=== PATIENT | female | born 1990 | race Caucasian/White ===

== ENCOUNTER 2018-06-11 23:33 | Inpatient (IN) | payer OTHER ==
[~2018-06-11] VITALS: Ht 144.8 cm; Wt 73.7 kg
[2018-06-11 23:40] VITALS: BP 126/69
[2018-06-11] MEDS ORDERED: LIDOCAINE/EPI 2% 1:200,00 (XYLOCAINE) 10 ML VIAL ONE (23:44)
[2018-06-11] MEDS ORDERED: D5 LR IV SOLUTION 1,000 ML IV ONE (23:44)
[2018-06-11] MEDS ORDERED: OXYTOCIN/NORMAL SALINE 500 ML IV ONE (23:44)
[2018-06-11] MEDS ORDERED: D5 LR IV SOLUTION 1,000 ML IV SCH (23:55)
[2018-06-12] VITALS (11 sets, daily range): BP systolic 89–124; BP diastolic 51–71
[2018-06-12] LABS: BASOPHILS % (AUTO) 0 % (0-10); EOSINOPHILS # (AUTO) 0.4 10^3/uL (0.0-0.3); EOSINOPHILS % (AUTO) 3 % (0-10); HEMATOCRIT 39 % (35-52); HEMOGLOBIN 13.1 G/DL (11.5-16.0); LYMPHOCYTES # (AUTO) 1.7 X 10^3 (1.0-4.0); LYMPHOCYTES % (AUTO) 12 % (12-44); MEAN CORPUSCULAR HEMOGLOBIN 30 PG (25-34); MEAN CORPUSCULAR HGB CONC 34 G/DL (32-36); MEAN CORPUSCULAR VOLUME 89 FL (80-99); MEAN PLATELET VOLUME 11.4 FL (7.4-10.4); MONOCYTES # (AUTO) 1.2 X 10^3 (0.0-1.0); MONOCYTES % (AUTO) 8 % (0-12); NEUTROPHILS # (AUTO) 10.8 X 10^3 (1.8-7.8); NEUTROPHILS % (AUTO) 77 % (42-75); PLATELET COUNT 216 10^3/uL (130-400); RED BLOOD COUNT 4.36 10^6/uL (4.35-5.85); RED CELL DISTRIBUTION WIDTH 14.4 % (10.0-14.5)
[2018-06-12] MEDS ORDERED: MINERAL OIL CONCENTRATE 99.9% 15 ML UDC TOP PRN
--- NOTE | 2018-06-12 00:28 | History & Physical-OB ---
OB - Chief Complaint & HPI Date/Time Date of Admission: Date of Admission: Date seen by a Provider: Jun 12, 2018 Time Seen by a Provider: 00:23 Chief Complaint/History OB-Reason for Admission/Chief: Onset of Labor Hx : 2 Hx Para: 1 Expected Date of Delivery: Jun 10, 2018 Gestational Age in Weeks: 40 Gestational Age in Days: 2 Other O+, Ab neg Rub Non Imm HIV/RPR/HepB NR GC/chyl Neg GTT normal GBS neg Allergies and Home Medications Allergies Coded Allergies: No Known Drug Allergies (Unverified , 06/11/18) Home Medications No Active Prescriptions or Reported Meds Patient Home Medication List Home Medication List Reviewed: Yes OB - History Hx of Present Care: Yes Ultrasounds: Normal mid trimester US Obstetrical Complications: None Medical Complications: None Information Induced Hypertension: No Maternal Gestational Diabetes: No Hemorrhage: No Obstetrical History Hx : 2 Hx Para: 1 Hx # Term Pregnancies: 1 Number of Living Children: 1 Patient Past Medical History None Social History/Family History HIV/AIDS: No Recent Infectious Disease Expo: No Sexually Transmitted Disease: No Alcohol Use: Denies Use Recreational Drug Use: No Smoking Cessation: Never smoker 2nd Hand Smoke Exposure: No Immunizations Tetanus Booster (TDap): Less than 5yrs Rubella: not immune RPR/VDRL: Negative GBS Status: Negative HBsAG: Negative OB - Admission Exam Physical Exam HEENT: NCAT Heart: Rhythm Normal Lungs: Clear Abdomen: Gravid Extremities: Normal Cervical Dilatation: 9cm Effacement: 100% Station: +1 Membranes: Intact Amniotic Fluid: Clear Accelerations: Accelerations Present Decelerations: No Decelerations Contractions on Admission: < 5 Minutes Apart Labs Laboratory Tests Test 06/11/18 23:48 Range/Units White Blood Count 14.0 H 4.3-11.0 10^3/uL Red Blood Count 4.36 4.35-5.85 10^6/uL Hemoglobin 13.1 11.5-16.0 G/DL Hematocrit 39 35-52 % Mean Corpuscular Volume 89 80-99 FL Mean Corpuscular Hemoglobin 30 25-34 PG Mean Corpuscular Hemoglobin Concent 34 32-36 G/DL Red Cell Distribution Width 14.4 10.0-14.5 % Platelet Count 216 130-400 10^3/uL Mean Platelet Volume 11.4 H 7.4-10.4 FL Neutrophils (%) (Auto) 77 H 42-75 % Lymphocytes (%) (Auto) 12 12-44 % Monocytes (%) (Auto) 8 0-12 % Eosinophils (%) (Auto) 3 0-10 % Basophils (%) (Auto) 0 0-10 % Neutrophils # (Auto) 10.8 H 1.8-7.8 X 10^3 Lymphocytes # (Auto) 1.7 1.0-4.0 X 10^3 Monocytes # (Auto) 1.2 H 0.0-1.0 X 10^3 Eosinophils # (Auto) 0.4 H 0.0-0.3 10^3/uL Basophils # (Auto) 0.0 0.0-0.1 10^3/uL OB - Assessment/Plan/Diagnosis Assessment Assessment: active labor Admission Dx Term Admission Status: Inpatient Order (span 2 midnights) Reason for Inpatient Admission: Active labor Plan Plan: Expectant Management Induction Method: AROM Other Plan 27 yo @ 40.2 wga here for active labor Plan - Expectant management - GBS neg - Does not desire epidural Copy Copies To 1: MYNOR CONTRERAS MD, HOLLY R MD Jun 12, 2018 00:28
[2018-06-12] MEDS ORDERED: OXYTOCIN/NORMAL SALINE 500 ML IV SCH (01:42)
--- NOTE | 2018-06-12 01:42 | OB Labor & Delivery Record ---
Vag Delivery Note Vag Delivery Note Date of Delivery: 06/12/18 Preoperative Diagnosis: Ingrid Rosa is a (27 /Para 2 / 1, Gestational Age (wks)40.2 wga here for active onset of labor Postoperative Diagnosis: Same Surgeon: MYNOR CONTRERAS Supervisor Long Goods: none Anesthesia: None Delivery Type: @ 0118 Findings: Term [place], no complications Viable female , apgars 8/9, weight 3625, 8#0 Lacerations: None Intact placenta with 3 vessel cord. No nuchal cord, body cord or shoulder dystocia Estimated Blood Loss: 200 ml Complications: None Condition: Stable Description of Procedure: The patient is a 27 yo G2 now P2 who presented in active labor. She was admitted and informed consent was obtained. Her labor course was unremarkable. She progressed to complete dilatation and began to push. She was then set up for delivery. The infant's head was delivered atraumatically in the JADA position. The shoulders and remainder of the infant's body were then delivered without difficulty. Upon delivery, infant was placed on maternal abdomen and attended to by pediatric staff. The cord was doubly clamped and cut by FOB. An intact placenta with 3-vessel cord delivered via Jenny and there was found to be minimal bleeding.~ Vigorous fundal massage was performed and the fundus was found to be firm. IV oxytocin was given. Examination of the vagina and perineum revealed no lacerations that required repair. Following the repair, sponge, instrument and needle counts were correct. Mom and baby were both in stable condition in the labor suite. Vitals - Labs Labs Laboratory Tests 06/11/18 23:48: White Blood Count 14.0H, Red Blood Count 4.36, Hemoglobin 13.1, Hematocrit 39, Mean Corpuscular Volume 89, Mean Corpuscular Hemoglobin 30, Mean Corpuscular Hemoglobin Concent 34, Red Cell Distribution Width 14.4, Platelet Count 216, Mean Platelet Volume 11.4H, Neutrophils (%) (Auto) 77H, Lymphocytes (%) (Auto) 12, Monocytes (%) (Auto) 8, Eosinophils (%) (Auto) 3, Basophils (%) (Auto) 0, Neutrophils # (Auto) 10.8H, Lymphocytes # (Auto) 1.7, Monocytes # (Auto) 1.2H, Eosinophils # (Auto) 0.4H, Basophils # (Auto) 0.0 MYNOR CONTRERAS MD Jun 12, 2018 01:41
[2018-06-12] MEDS ORDERED: WITCH HAZEL(TUCKS) 40 EA JAR TOP PRN (01:45)
[2018-06-12] MEDS ORDERED: MEASLES,MUMPS,RUBELLA 1 EA INJ SQ ONE (01:45)
[2018-06-12] MEDS ORDERED: BENZOCAINE/MENTHOL (DERMOPLAST) 56 ML CAN TP PRN (01:45)
[2018-06-12] MEDS: IBUPROFEN 600 MG (MOTRIN) TAB PO SCH ×4 (02:56→23:16)
[2018-06-12] MEDS ORDERED: CATHETER FLUSH 10 ML SYR IV SCH ×2 (06:00)
[2018-06-12] MEDS ORDERED: FLU QUADRIvalent (5+ YOA) 2018-2019 (AFLURIA) 0.5 ML IM ONE (07:30)
[2018-06-13 02:39] VITALS: BP 98/59
[2018-06-13] MEDS: IBUPROFEN 600 MG (MOTRIN) TAB PO SCH ×2 (04:57→11:16)
[2018-06-13 05:40] LABS: BASOPHILS % (AUTO) 0 % (0-10); EOSINOPHILS # (AUTO) 0.7 10^3/uL (0.0-0.3); EOSINOPHILS % (AUTO) 6 % (0-10); HEMATOCRIT 31 % (35-52); HEMOGLOBIN 10.2 G/DL (11.5-16.0); LYMPHOCYTES # (AUTO) 2.5 X 10^3 (1.0-4.0); LYMPHOCYTES % (AUTO) 21 % (12-44); MEAN CORPUSCULAR HEMOGLOBIN 30 PG (25-34); MEAN CORPUSCULAR HGB CONC 33 G/DL (32-36); MEAN CORPUSCULAR VOLUME 90 FL (80-99); MEAN PLATELET VOLUME 11.4 FL (7.4-10.4); MONOCYTES # (AUTO) 0.9 X 10^3 (0.0-1.0); MONOCYTES % (AUTO) 7 % (0-12); NEUTROPHILS % (AUTO) 66 % (42-75); PLATELET COUNT 195 10^3/uL (130-400); RED BLOOD COUNT 3.44 10^6/uL (4.35-5.85); RED CELL DISTRIBUTION WIDTH 14.3 % (10.0-14.5); WHITE BLOOD COUNT 12.1 10^3/uL (4.3-11.0)
[2018-06-13 09:52] VITALS: BP 97/68
[2018-06-13] MEDS ORDERED: IBUP-844 PO (10:19)
--- NOTE | 2018-06-13 10:23 | Discharge Summary ---
Diagnosis/Chief Complaint Date of Admission Jun 11, 2018 at 23:34 Date of Discharge Jun 13, 2018 Admission Diagnosis Admission Diagnosis 27 yo @ 40.2 wga here for active labor Discharge Diagnosis 27 yo @ 40.2 wga admitted for active labor s/p of Term [place], no complications Viable female infant, apgars 8/9, weight 3625, 8#0 Lacerations: None Intact placenta with 3 vessel cord. No nuchal cord, body cord or shoulder dystocia Discharge Summary-OBS Procedures None. Discharge Physical Examination Allergies: Coded Allergies: No Known Drug Allergies (Unverified , 06/11/18) Vitals & I&Os Vital Sign - Last 12Hours Date Time Temp Pulse Resp B/P (MAP) Pulse Ox O2 Delivery O2 Flow Rate FiO2 06/13/18 09:52 97.7 68 18 97/68 (78) 98 Room Air General Appearance: Alert, Oriented X3, Cooperative Psych/Mental Status: Mood NL Hospital Course Routine pp care Labs Laboratory Tests 06/13/18 05:30: White Blood Count 12.1H, Red Blood Count 3.44L, Hemoglobin 10.2#L, Hematocrit 31L, Mean Corpuscular Volume 90, Mean Corpuscular Hemoglobin 30, Mean Corpuscular Hemoglobin Concent 33, Red Cell Distribution Width 14.3, Platelet Count 195, Mean Platelet Volume 11.4H, Neutrophils (%) (Auto) 66, Lymphocytes (% ) (Auto) 21, Monocytes (%) (Auto) 7, Eosinophils (%) (Auto) 6, Basophils (%) ( Auto) 0, Neutrophils # (Auto) 8.0H, Lymphocytes # (Auto) 2.5, Monocytes # (Auto ) 0.9, Eosinophils # (Auto) 0.7H, Basophils # (Auto) 0.0 Discharge Instructions to patient/family Please see electronic discharge instructions given to patient. Discharge Inst-Women's Serv Depart Medications New, Converted or Re-Newed RX: Other (May take over the counter) New Medications: Ibuprofen (Ibu) 600 Mg Tablet 600 MG PO Q6H, #90 TAB 0 Refills Follow Up/Instructions Goal/Follow Up: Follow up with Dr. Jorgensen in 6 weeks. Activity Activity: Activity as Tolerated Driving Instructions: You May Drive Nothing Inside Vagina: No Douching, No [place], No Tampons Diet Discharge Diet: No Restrictions Symptoms to Report to : Bleeding Excessive, Pain Increased, Fever Over 101 Degrees F, Vaginal Bleeding Increase, Vaginal Discharge Foul, Questions/Concerns , Shortness of Breath Discharge Medications Reviewed and agree with Discharge Medication list on patient's Discharge Instruction sheet Clinical Quality Measures DVT/VTE Risk/Contraindication: Risk Factor Score Per Nursin RFS Level Per Nursing on Admit: 2=Moderate Copy Copies To 1: MYNOR JORGENSEN MD, LINDA K DO Jun 13, 2018 10:23
[2018-06-13] MEDS ORDERED: MEASLES,MUMPS,RUBELLA 1 EA INJ ONE (11:03)
== END 2018-06-13 12:46 | disposition home or self-care (01) | DRG 807 ==
LOC: WSo 23:33 → LDRP 23:34 → EDBD 23:34 → LDRP 23:37
PROVIDERS: ADMIT Family Medicine; ATTEND Family Medicine
PROC: 10E0XZZ Delivery of Products of Conception, External Approach (ICD-10-PCS; principal; 2018-06-12)
DX: O80 Encounter for full-term uncomplicated delivery (principal); Z3A.40 40 weeks gestation of pregnancy; Z37.0 Single live birth
CPT/HCPCS: 36415; 85025; 86850; 86900; 86901; 90707; 99212

== ENCOUNTER 2019-08-30 07:00 | Inpatient (IN) | payer MEDICAID, OTHER ==
[~2019-08-30] VITALS: Ht 148 cm; Wt 75.2 kg
[2019-08-30] VITALS (30 sets, daily range): BP systolic 100–137; BP diastolic 52–85
[~2019-08-30 07:00] MED LIST: IBUP-1773 PO; IBUP-844 PO
[2019-08-30] MEDS ORDERED: D5 LR IV SOLUTION 1,000 ML IV ONE (07:19)
[2019-08-30] MEDS ORDERED: OXYTOCIN PRE-MIX DRIP 500 ML IV SCH ×2 (07:21→15:45)
--- NOTE | 2019-08-30 07:25 | NUR ---
JONATHON LAST presented to unit via AMBULATORY, accompanied by SIGNIFICANT OTHER, FOR SCHEDULED INDUCTION. JONATHON LAST weighed, gowned, voided, and to bed. EFHM and TOCO applied, VS taken. JONATHON LAST oriented to bed controls, call light, TV, heat, and A/C controls.
[2019-08-30] MEDS ORDERED: MINERAL OIL CONCENTRATE 99.9% 15 ML UDC TOP PRN (07:30)
[2019-08-30 08:16] LABS: BASOPHILS % (AUTO) 0 % (0-10); EOSINOPHILS # (AUTO) 0.1 10^3/uL (0.0-0.3); EOSINOPHILS % (AUTO) 1 % (0-10); HEMATOCRIT 38 % (35-52); HEMOGLOBIN 12.6 G/DL (11.5-16.0); LYMPHOCYTES # (AUTO) 1.7 X 10^3 (1.0-4.0); LYMPHOCYTES % (AUTO) 22 % (12-44); MEAN CORPUSCULAR HEMOGLOBIN 28 PG (25-34); MEAN CORPUSCULAR HGB CONC 33 G/DL (32-36); MEAN CORPUSCULAR VOLUME 87 FL (80-99); MEAN PLATELET VOLUME 11.6 FL (7.4-10.4); MONOCYTES # (AUTO) 0.6 X 10^3 (0.0-1.0); MONOCYTES % (AUTO) 8 % (0-12); NEUTROPHILS # (AUTO) 5.2 X 10^3 (1.8-7.8); NEUTROPHILS % (AUTO) 68 % (42-75); PLATELET COUNT 258 10^3/uL (130-400); RED CELL DISTRIBUTION WIDTH 14.6 % (10.0-14.5); WHITE BLOOD COUNT 7.6 10^3/uL (4.3-11.0)
--- NOTE | 2019-08-30 08:30 | NUR ---
DR CONTRERAS MADE AWARE OF PT REPORT INCLUDING SVE /2, PITOCIN RATE, FHT, UC PATTERN, DOES NOT WANT EPIDURAL. NO NEW ORDERS AT THIS TIME.
[2019-08-30] MEDS: D5 LR IV SOLUTION 1,000 ML IV SCH ×2 (08:41→19:21)
--- NOTE | 2019-08-30 09:45 | NUR ---
DR NESS AT BEDSIDE FOR AROM. SVE BY DR NESS 7CM. DR NESS TO UPDATE DR CONTRERAS ON PT SVE.
--- NOTE | 2019-08-30 10:35 | NUR ---
DR CONTRERAS ON L&D FLOOR UNTIL PT DELIVERS
--- NOTE | 2019-08-30 11:27 | History & Physical-OB ---
OB - Chief Complaint & HPI Date/Time Date of Admission: Date of Admission: Aug 30, 2019 at 07:15 Date seen by a Provider: Aug 30, 2019 Time Seen by a Provider: 11:00 Chief Complaint/History OB-Reason for Admission/Chief: Induction of Labor Hx : 3 Hx Para: 2 Expected Date of Delivery: Aug 23, 2019 Gestational Age in Weeks: 41 Gestational Age in Days: 0 Indication for induction: post dates History of Labs O+, Ab neg Rub Imm HepB/HIV/RPR NR Normal 1 hr GTT GBS Neg Allergies and Home Medications Allergies Coded Allergies: No Known Drug Allergies (Unverified , 06/11/18) Home Medications Ibuprofen 600 Mg Tablet, 600 MG PO Q6H Prescribed by: KUNAL ESTEBAN on 02/02/16 1314 Ibuprofen 600 Mg Tablet, 600 MG PO Q6H Prescribed by: KUNAL ESTEBAN on 06/13/18 1019 Patient Home Medication List Home Medication List Reviewed: Yes OB - History Hx of Present Care: Yes Ultrasounds: Normal mid trimester US Obstetrical Complications: None Medical Complications: None Information Induced Hypertension: No Maternal Gestational Diabetes: No Hemorrhage: No Obstetrical History Hx : 3 Hx Para: 2 Hx # Term Pregnancies: 2 Hx # Pregnancies: 0 Number of Living Children: 2 Delivery History Hx Dystocia: No Hx Forceps Assisted Delivery: No Hx Vacuum Extraction Assisted: No Hx Placenta Abnormality: No Hx Large For Gestational Age I: No Hx Small for Gestational Age I: No Hx Section: No Hx Vaginal Delivery Post C-Sec: No Hx Blood Disorders: No Adverse Rxn to Tranfusion: No Patient Past Medical History None Social History/Family History HIV/AIDS: No Recent Infectious Disease Expo: No Sexually Transmitted Disease: No Alcohol Use: Denies Use Recreational Drug Use: No 2nd Hand Smoke Exposure: No Immunizations Hepatitis A: Yes Hepatitis B: Yes Tetanus Booster (TDap): Less than 5yrs (06/26/19) Date of Influenza Vaccine: Apr 03, 2019 Rubella: immune RPR/VDRL: Negative GBS Status: Negative HBsAG: Negative OB - Admission Exam Physical Exam Vitals: Vital Signs 08/30/19 08/30/19 08/30/19 08:38 10:00 10:45 Temp 36.6 Pulse 77 Resp 16 B/P (MAP) 108/63 (78) Pulse Ox 98 O2 Delivery Room Air HEENT: NCAT Heart: Rhythm Normal Lungs: Clear Abdomen: Gravid Cervical Dilatation: 7cm Effacement: 100% Station: 0 Membranes: Ruptured Amniotic Fluid: Clear Heart Rate: 130's Decelerations: No Decelerations Contractions on Admission: < 5 Minutes Apart Intensity: Moderate [place]ello Scoring Tool (Modified) Dilation (cm): 3-4cm (2) Effacement (%): 80-100% (3) Descent/Station: -1,0 (2) Cervix Consistency: Medium(1) Cervix Position: Middle/Mid-Position (1) Add 1 point for: Each previous vaginal delivery (1) Subtract 1 point for: Postdate (-1) [place] Score: 10 Labs Laboratory Tests Test 08/30/19 08:00 Range/Units White Blood Count 7.6 4.3-11.0 10^3/uL Red Blood Count 4.44 4.35-5.85 10^6/uL Hemoglobin 12.6 11.5-16.0 G/DL Hematocrit 38 35-52 % Mean Corpuscular Volume 87 80-99 FL Mean Corpuscular Hemoglobin 28 25-34 PG Mean Corpuscular Hemoglobin Concent 33 32-36 G/DL Red Cell Distribution Width 14.6 H 10.0-14.5 % Platelet Count 258 130-400 10^3/uL Mean Platelet Volume 11.6 H 7.4-10.4 FL Neutrophils (%) (Auto) 68 42-75 % Lymphocytes (%) (Auto) 22 12-44 % Monocytes (%) (Auto) 8 0-12 % Eosinophils (%) (Auto) 1 0-10 % Basophils (%) (Auto) 0 0-10 % Neutrophils # (Auto) 5.2 1.8-7.8 X 10^3 Lymphocytes # (Auto) 1.7 1.0-4.0 X 10^3 Monocytes # (Auto) 0.6 0.0-1.0 X 10^3 Eosinophils # (Auto) 0.1 0.0-0.3 10^3/uL Basophils # (Auto) 0.0 0.0-0.1 10^3/uL OB - Assessment/Plan/Diagnosis Assessment Assessment: induction of labor Admission Dx Post dates 41 week gestation Third trimester Admission Status: Inpatient Order (span 2 midnights) Reason for Inpatient Admission: Labor Plan Plan: Induction Induction Method: per Pitocin Protocol Other Plan 28 yo @ 41 wga here for IOL Plan - Pitocin protocol - AROM - GBS neg Copy Copies To 1: MYNOR CONTRERAS MD, HOLLY R MD Aug 30, 2019 11:27
[2019-08-30] MEDS ORDERED: MISOPROSTOL 200 MCG (CYTOTEC) TABLET ONE (13:23)
[2019-08-30] MEDS ORDERED: MISOPROSTOL 200 MCG (CYTOTEC) TABLET PR ONE (13:30)
[2019-08-30] MEDS ORDERED: CATHETER FLUSH 10 ML SYR IV SCH ×2 (14:00→22:00)
[2019-08-30] MEDS ORDERED: WITCH HAZEL(TUCKS) 40 EA JAR ONE (15:39)
[2019-08-30] MEDS ORDERED: BENZOCAINE/MENTHOL (DERMOPLAST) 60 ML CAN TP ONE (15:39)
[2019-08-30] MEDS ORDERED: WITCH HAZEL(TUCKS) 40 EA JAR TOP PRN ×2 (15:45→16:15)
[2019-08-30] MEDS ORDERED: TETANUS,DIPTH,PERTUSS P/F (BOOSTRIX) 0.5 ML VIAL IM ONE (15:45)
[2019-08-30] MEDS ORDERED: BENZOCAINE/MENTHOL (DERMOPLAST) 60 ML CAN TP PRN ×2 (15:45→16:15)
[2019-08-30] MEDS ORDERED: MEASLES,MUMPS,RUBELLA 1 EA INJ SQ ONE (15:45)
[2019-08-30] MEDS ORDERED: IBUPROFEN 600 MG (MOTRIN) TAB PO ONE (15:53)
--- NOTE | 2019-08-30 17:10 | NUR ---
report received from MARCELA Jimenez.
--- NOTE | 2019-08-30 17:25 | OB Labor & Delivery Record ---
Vag Delivery Note Vag Delivery Note Date of Delivery: 08/30/19 Preoperative Diagnosis: Ingrid Henderson is a (28 /Para 3 / 2, Gestational Age (wks)41 here for IOL for post dates Postoperative Diagnosis: Same Surgeon: MYNOR CONTRERAS Mental Health Tech: Viri Gonzalez MS3 Anesthesia: None Delivery Type: @ 1322 Findings: Viable Male , apgars 8/9, weight 8#11, 3950 grams Lacerations: None Intact placenta with 3 vessel cord. No nuchal cord, body cord or shoulder dystocia Cytotec 800 mcg placed for hemorrhage prophylaxis Estimated Blood Loss: 200 ml Complications: None Condition: Stable Description of Procedure: The patient is a 28 year old female who presented for IOL. She was admitted and informed consent was obtained. Her labor course was unremarkable. She progressed to complete dilatation and began to push. She was then set up for delivery. The 's head was delivered atraumatically in the JADA position. The shoulders and remainder of the 's body were then delivered without difficulty. Upon delivery, the head was held below the level of the perineum and the mouth and nares were bulb suctioned. The cord was doubly clamped and cut after 2 min delay by FOB and the was handed off to the pediatric staff. An intact placenta with 3-vessel cord delivered via Jenny and there was found to be minimal bleeding.~ Vigorous fundal massage was performed and the fundus was found to be firm. IV oxytocin was given. Examination of the vagina and perineum revealed no lacerations that required repair. Following the repair, sponge, instrument and needle counts were correct. Mom is stable condition in the labor suite. Baby to Nursery for close monitoring due to retractions. Vitals - Labs Vital Signs - I&O Vital Signs Date Time Temp Pulse Resp B/P (MAP) Pulse Ox O2 Delivery O2 Flow Rate FiO2 08/30/19 16:00 76 106/57 (73) Room Air 08/30/19 15:40 75 110/52 (71) Room Air 08/30/19 15:24 74 103/59 (74) Room Air 08/30/19 15:09 75 100/58 (72) Room Air 08/30/19 14:54 71 101/55 (70) Room Air 08/30/19 14:39 70 111/59 (76) 100 Room Air 08/30/19 14:09 72 103/59 (74) 100 Room Air 08/30/19 13:54 80 104/53 (70) 100 Room Air 08/30/19 13:39 36.6 80 16 114/56 (75) Room Air 08/30/19 13:26 80 113/55 (74) Room Air 08/30/19 13:15 86 127/59 (81) Room Air 08/30/19 13:00 82 127/62 (83) Room Air 08/30/19 12:45 91 126/61 (82) Room Air 08/30/19 12:30 78 137/66 (89) Room Air 08/30/19 12:15 72 22 132/74 (93) Room Air 08/30/19 12:00 84 132/85 (101) Room Air 08/30/19 11:45 78 137/75 (95) Room Air 08/30/19 11:30 81 107/70 (82) Room Air 08/30/19 11:15 Room Air 08/30/19 11:00 80 18 126/70 (88) Room Air 08/30/19 10:45 77 108/63 (78) Room Air 08/30/19 10:30 72 119/66 (83) Room Air 08/30/19 10:15 74 113/65 (81) Room Air 08/30/19 10:00 36.6 79 16 116/65 (82) Room Air 08/30/19 09:45 Room Air 08/30/19 09:30 77 117/75 (89) Room Air 08/30/19 09:15 86 117/71 (86) Room Air 08/30/19 09:00 78 109/60 (76) Room Air 08/30/19 08:45 79 102/64 (77) Room Air 08/30/19 08:38 37.0 83 16 98 Room Air 08/30/19 08:00 37.0 83 16 114/61 (78) 98 Room Air Labs Laboratory Tests 08/30/19 08:00: White Blood Count 7.6, Red Blood Count 4.44, Hemoglobin 12.6, Hematocrit 38, Mean Corpuscular Volume 87, Mean Corpuscular Hemoglobin 28, Mean Corpuscular Hemoglobin Concent 33, Red Cell Distribution Width 14.6H, Platelet Count 258, Mean Platelet Volume 11.6H, Neutrophils (%) (Auto) 68, Lymphocytes (%) (Auto) 22, Monocytes (%) (Auto) 8, Eosinophils (%) (Auto) 1, Basophils (%) (Auto) 0, Neutrophils # (Auto) 5.2, Lymphocytes # (Auto) 1.7, Monocytes # (Auto) 0.6, Eosinophils # (Auto) 0.1, Basophils # (Auto) 0.0 MYNOR CONTRERAS MD Aug 30, 2019 17:25
[2019-08-30] MEDS ORDERED: IBUPROFEN 600 MG (MOTRIN) TAB PO SCH (18:00)
--- NOTE | 2019-08-30 19:10 | NUR ---
report given to MARCELA Villalta.
[2019-08-30] MEDS: DOCUSATE SODIUM 100 MG (COLACE) CAP PO SCH (21:37)
[2019-08-30] MEDS: IBUPROFEN 600 MG (MOTRIN) TAB PO SCH (21:37)
[2019-08-31 00:15] VITALS: BP 97/57
[2019-08-31 04:12] VITALS: BP 107/68
[2019-08-31] MEDS: IBUPROFEN 600 MG (MOTRIN) TAB PO SCH ×2 (04:12→10:11)
[2019-08-31 06:28] LABS: BASOPHILS % (AUTO) 0 % (0-10); EOSINOPHILS # (AUTO) 0.2 10^3/uL (0.0-0.3); EOSINOPHILS % (AUTO) 1 % (0-10); HEMATOCRIT 36 % (35-52); HEMOGLOBIN 11.5 G/DL (11.5-16.0); LYMPHOCYTES # (AUTO) 2.2 X 10^3 (1.0-4.0); LYMPHOCYTES % (AUTO) 17 % (12-44); MEAN CORPUSCULAR HEMOGLOBIN 28 PG (25-34); MEAN CORPUSCULAR HGB CONC 32 G/DL (32-36); MEAN CORPUSCULAR VOLUME 88 FL (80-99); MEAN PLATELET VOLUME 11.4 FL (7.4-10.4); MONOCYTES % (AUTO) 8 % (0-12); NEUTROPHILS # (AUTO) 9.1 X 10^3 (1.8-7.8); NEUTROPHILS % (AUTO) 73 % (42-75); PLATELET COUNT 237 10^3/uL (130-400); RED CELL DISTRIBUTION WIDTH 15.1 % (10.0-14.5); WHITE BLOOD COUNT 12.5 10^3/uL (4.3-11.0)
[2019-08-31 08:10] VITALS: BP 109/67
[2019-08-31] MEDS ORDERED: IBUP-844 PO (08:15)
[2019-08-31] MEDS ORDERED: PREN-142 PO (08:15)
--- NOTE | 2019-08-31 09:00 | NUR ---
Dr Mcgee here to see pt and discuss discharge with pt.
--- NOTE | 2019-08-31 09:06 | NUR ---
Pt left floor to smoke. Pt was educated on risk. Pt verbalized understanding and stated she was going anyway. Dr Francis notified. Addendum: 08/31/19 at 924 by KIMBER E[address] RN [address] Francis notified at this time. Addendum: 08/31/19 at 925 by KIMBER ESTRADA RN wrong pt/wrong chart.
--- NOTE | 2019-08-31 09:57 | Discharge Summary ---
Discharge Summary Hospital Course Hospital Course Date of Admission: Aug 30, 2019 at 07:15 Admission Diagnosis : Family Physician/Provider: Mynor Jorgensen MD Date of Discharge: 08/31/19 Discharge Diagnosis: s/p spontaneous vaginal delivery Hospital Course: Pt admitted for IOL for post dates, had uncomplicated labor, delivery and course. Labs and Pending Lab Test: Laboratory Tests 08/31/19 06:15: White Blood Count 12.5H, Red Blood Count 4.06L, Hemoglobin 11.5, Hematocrit 36, Mean Corpuscular Volume 88, Mean Corpuscular Hemoglobin 28, Mean Corpuscular Hemoglobin Concent 32, Red Cell Distribution Width 15.1H, Platelet Count 237, Mean Platelet Volume 11.4H, Neutrophils (%) (Auto) 73, Lymphocytes (%) (Auto) 17, Monocytes (%) (Auto) 8, Eosinophils (%) (Auto) 1, Basophils (%) (Auto) 0, Neutrophils # (Auto) 9.1H, Lymphocytes # (Auto) 2.2, Monocytes # (Auto) 1.0, Eosinophils # (Auto) 0.2, Basophils # (Auto) 0.0 Home Meds Active Vitamin Tablet ( Vit No.124/Iron/FA) 1 Each Tablet 1 Each PO DAILY Ibu (Ibuprofen) 600 Mg Tablet 600 Mg PO Q6H PRN Ibu (Ibuprofen) 600 Mg Tablet 600 Mg PO Q6H Ibuprofen 600 Mg Tablet 600 Mg PO Q6H Assessment/Pt DC Instructions Follow up with Dr. Jorgensen in 6 weeks for visit. Discharge Diet: Regular Diet Activity as Tolerated: Yes (avoid strenuous activity x 2 weeks) Discharge Physical Examination Allergies: Coded Allergies: No Known Drug Allergies (Unverified , 06/11/18) General Appearance: No Apparent Distress, WD/WN Respiratory: Lungs Clear, Normal Breath Sounds Cardiovascular: Regular Rate, Rhythm, No Murmur Skin: Normal Color, Warm/Dry Neurologic/Psychiatric: Alert Copy Copies To 1: MYNOR JORGENSEN MD Clinical Quality Measures DVT/VTE Risk/Contraindication: Risk Factor Score Per Nursin RFS Level Per Nursing on Admit: 1=Low/No VTE PPX CARLOS ENRIQUE NESS MD Aug 31, 2019 09:57
[2019-08-31] MEDS: DOCUSATE SODIUM 100 MG (COLACE) CAP PO SCH (10:10)
[2019-08-31 13:00] VITALS: BP 126/77
[2019-08-31 16:00] VITALS: BP 126/77
--- NOTE | 2019-08-31 16:20 | NUR ---
JONATHON LAST demonstrates understanding of discharge instructions and accurately returns instructions upon questioning.Language line used for discharged instructions. Copy of Post-Discharge Instructions and Medication Discharge Instructions given to patient. MARGARETTE TOBARJONATHON is able to manage continuing needs after discharge. Patients belongings returned to her. Skin dry and intact; no breakdown noted. Patient discharged from [facility] on 08/31/19 at 1620. JONATHON LAST left floor via ambulation, accompanied by and RN. No concerns voiced via pt at this time. Pt left via private vehicle to home.
--- OUTSIDE RECORDS SUMMARY | 2019-09-03 12:27 | XMS REPORT ---
Author Author Ingrid CONTRERAS [facility] [address] Address [address] [place] [address] Care Team Providers Care Orange Grower Name Role Phone MYNOR CONTRERAS Unavailable PROBLEMS Type Condition ICD9-CM Code UPT20-HL Code Onset Dates Condition S tatus SNOMED Code Problem Cervical high risk human papillomavirus (HPV) DN A test positive R87.810 Active 162080195 Problem Atyp squam cell of undet signfc cyto smr crvx (ASC-US) R87.610 Active 149350774 ALLERGIES No Information ENCOUNTERS Encounter Location Date Diagnosis [place] [address] [address] [place] [address] Apr, [facility] [address] [place] [id number] [place] [address] Apr, [place] [address] [address] Apr, [place] [address] [address] [place] [id number] [place] [phone] Apr, [place] [address] [address] [place] [id number] [place] [phone] Mar, care in third trime ster Z34.93 and 32 weeks gestation of Z3A.32 [place] [address] [facility] [id number] [address] [place] [phone] 10 Mar, 2018 30 weeks gestation of pregna ncy Z3A.30 ; Third trimester Z34.93 and Encounter for immunization Z23 [place] [address] [address] [facility] [id number] [address] [place] [phone] Feb, Second trimester Z 34.92 and 26 weeks gestation of Z3A.26 [place] [address] [address] [facility] [id number] [address] [place] [phone] 09 Jan, 2018 21 weeks gestation of pregna ncy Z3A.21 and Second trimester Z34.92 [place] [address] [address] [facility] [id number] [address] [place] [address] Dec, care in second trim karyn Z34.92 and 17 weeks gestation of Z3A.17 [place] [address] [address] [facility] [id number] [address] [place] [phone] Nov, care, subsequent pr egnancy in first trimester Z34.81 and 13 weeks gestation of Z3A.13 [place] [address] [address] [facility] [id number] [address] [place] [phone] October, [place] [address] [address] [facility] [id number] [address] [place] [address] October, Normal in multigra janet Z34.80 ; care in first trimester Z34.91 and 11 weeks gestation of Z3A.11 [place] [address] [address] [facility] [id number] [address] [place] [phone] Sep, [place] [address] [address] [facility] [id number] [address] [place] [address] Sep, Positive test Z32. 01 [place] [address] [address] [facility] [id number] [address] [place] [phone] Mar, [place] [address] [address] [place] [id number] [place] [address] Feb, Threatened miscarriage O20.0 and Homeless Z59.0 [place] [address] [address] [facility] [id number] [address] [place] [phone] Feb, Threatened miscarriage O20.0 [place] [address] [address] [facility] [id number] [address] [place] [phone] Jan, Threatened miscarriage O20.0 [place] [address] [address] [facility] [id number] [address] [place] [phone] Jan, Encounter for test , result unknown Z32.00 [facility] [address] [id number] [address] [place] [address] Jan, [facility] [address] [id number] [address] [place] [address] Jan, [facility] [address] [id number] [address] [place] [phone] Jan, [facility] [address] [id number] [address] [place] [phone] Dec, [facility] [address] [id number] [address] [place] [phone] Dec, [place] [address] [id number] [address] [place] [phone] Nov, [place] [address] [id number] [address] [place] [address] Nov, Chalazion left upper eyelid H00.14 [facility] [address] [id number] [address] [place] [id number] 06 Feb, 2016 Routine follow-up Z39.2 ; Cervical high risk human papillomavirus (HPV) DNA test positive R87.810 and Atyp squam cell of undet signfc cyto smr crvx (ASC-US) R87.610 [place] [address] [address] [facility] [id number] [address] [place] [id number] 27 Dec, 2015 Normal in third tr imester Z34.93 and 39 weeks gestation of Z3A.39 [facility] [address] [facility] [id number] [address] [place] [phone] 20 Dec, 2015 Normal first confi rmed, currently in third trimester Z34.03 and 38 weeks gestation of Z3A.38 [facility] [address] [facility] [id number] [address] [place] [phone] 13 Dec, 2015 Normal first confi rmed, currently in third trimester Z34.03 and 37 weeks gestation of Z3A.37 [place] [address] [address] [facility] [id number] [address] [place] [phone] Dec, Normal first confi rmed, currently in third trimester Z34.03 and 36 weeks gestation of Z3A.36 [place] [address] [id number] [address] [place] [address] Nov, [place] [address] [address] [facility] [id number] [address] [place] [address] Nov, Normal first confi rmed, currently in third trimester Z34.03 and 33 weeks gestation of Z3A.33 [place] [address] [address] [facility] [id number] [address] [place] [phone] Nov, Normal first confi rmed, currently in third trimester Z34.03 ; 31 weeks gestation of Z3A.31 and Encounter for immunization Z23 [place] [address] [address] [facility] [id number] [address] [place] [phone] October, Normal first confi rmed, second trimester Z34.02 and 26 weeks gestation of Z3A.26 [place] [address] [address] [facility] [id number] [address] [place] [phone] Sep, Normal first confi rmed, second trimester Z34.02 ; Chlamydia infection affecting in second trimester, antepartum O98.312 and 22 weeks gestation of Z3A.22 [place] [address] [address] [facility] [id number] [address] [place] [phone] Aug, 18 weeks gestation of pregna ncy Z3A.18 ; Normal first confirmed, second trimester Z34.02 and Chlamydia infection affecting in second trimester, antepartum O98.312 [place] [address] [address] [facility] [id number] [address] [place] [phone] Jul, [place] [address] [address] [facility] [id number] [address] [place] [phone] Jul, [place] [address] [address] [facility] [id number] [address] [place] [id number] 08 Jul, 2015 care, first pregnan cy in second trimester Z34.02 ; with 14 completed weeks gestation Z3A.14 ; Vaginal discharge N89.8 ; Screening for malignant neoplasm of cervix Z12.4 and Routine screening for STI (sexually transmitted infection) Z11.3 [facility] [address] [facility] [id number] [address] [address] 11 Jun, 2015 Normal , first Z34. 00 ; Encounter for immunization Z23 ; care, first in first trimester Z34.01 and with 10 completed weeks gestation Z3A.10 [facility] [address] [facility] [id number] [address] [address] 30 May, 2015 confirmed by posit torsten urine test Z32.01 IMMUNIZATIONS Vaccine Route Administration Date Status FLULAVAL QUAD 0.5ML (6 MO & UP) 2017 IM Intramuscular Apr 05 18 Administered TDAP (BOOSTRIX) IM Intramuscular Apr 05, 2018 Administered SOCIAL HISTORY Never Assessed REASON FOR VISIT OB 4wk f/u , Urine OB dip , tdap, flu shot PLAN OF CARE Activity Details Follow Up 2 Weeks Reason: VITAL SIGNS Height 57.5 in 2018-04-05 Weight 161.0 lbs 2018-04-05 Temperature 97.8 degrees Fahrenheit 2018-04-05 Heart Rate 80 bpm 2018-04-05 Respiratory Rate 22 2018-04-05 BMI 34.237 kg/m2 2018-04-05 Blood pressure systolic 122 mmHg 2018-04-05 Blood pressure diastolic 70 mmHg 2018-04-05 MEDICATIONS Medication Instructions Dosage Frequency Start Date End Date Duration S tatus Vitamins - (Dis) Active RESULTS Name Result Date Reference Range UA OB DIP (IN HOUSE) 2018-04-05 Glucose negative Protein trace PROCEDURES Procedure Date Ordered Result Body Site URINE-NO MICRO Apr 05, 2018 TDAP (BOOSTRIX) Apr 05, 2018 SINGLE IMMUNIZATION ADMIN Apr 05, 2018 FLULAVAL QUAD 0.5ML (6 MO AND UP) 2018 Apr 05, 2018 IMMUNIZATION ADMIN, EACH ADD (please include units) Apr 05, 2018 INSTRUCTIONS MEDICATIONS ADMINISTERED No Known Medications MEDICAL (GENERAL) HISTORY Type Description Date Hospitalization History child
--- OUTSIDE RECORDS SUMMARY | 2019-09-03 12:27 | XMS REPORT ---
Author Author Ingrid CONTRERAS [facility] Address [address] [place] [address] Care Team Providers Care Hat Model Name Role Phone MYNOR CONTRERAS Unavailable PROBLEMS Type Condition ICD9-CM Code RQP99-TM Code Onset Dates Condition S tatus SNOMED Code Problem Cervical high risk human papillomavirus (HPV) DN A test positive R87.810 Active 533001759 Problem Atyp squam cell of undet signfc cyto smr crvx (ASC-US) R87.610 Active [id number] ALLERGIES No Information ENCOUNTERS Encounter Location Date Diagnosis [place] [id number] [place] [phone] May, [place] [address] [address] [place] [id number] [place] [address] Apr, Third trimester Z3 4.93 and 37 weeks gestation of Z3A.37 [place] [address] [address] [place] [id number] [place] [id number] 20 Apr, 2018 36 weeks gestation of pregna ncy Z3A.36 and Third trimester Z33.1 [place] [id number] [place] [phone] 14 Apr, 2018 Third trimester Z3 4.93 [place] [address] [address] [place] [id number] [place] [phone] 07 Apr, 2018 Third trimester Z3 4.93 and 34 weeks gestation of Z3A.34 [place] [address] [address] [place] [id number] [place] [address] Mar, care in third trime ster Z34.93 and 32 weeks gestation of Z3A.32 [place] [address] [address] [place] [id number] [place] [phone] Mar, 30 weeks gestation of pregna ncy Z3A.30 ; Third trimester Z34.93 and Encounter for immunization Z23 [place] [address] [address] [place] [id number] [place] [phone] Feb, Second trimester Z 34.92 and 26 weeks gestation of Z3A.26 [place] [address] [address] Jan, 21 weeks gestation of pregna ncy Z3A.21 and Second trimester Z34.92 [place] [address] [address] Dec, care in second trim karyn Z34.92 and 17 weeks gestation of Z3A.17 [place] [address] [address] 13 Nov, 2017 care, subsequent pr egnancy in first trimester Z34.81 and 13 weeks gestation of Z3A.13 [place] [address] [place] [id number] [place] [phone] October, [place] [address] [address] 16 Oct, 2017 Normal in multigra janet Z34.80 ; care in first trimester Z34.91 and 11 weeks gestation of Z3A.11 [place] [address] [place] [id number] [place] [phone] Sep, [place] [address] [place] [id number] [place] [phone] Sep, Positive test Z32. 01 [place] [address] [place] [id number] [place] [phone] Mar, [place] [address] [place] [id number] [place] [id number] 13 Feb, 2017 Threatened miscarriage O20.0 and Homeless Z59.0 [place] [address] [address] [facility] [id number] [address] [place] [phone] Feb, Threatened miscarriage O20.0 [facility] [address] [facility] [id number] [address] [place] [phone] Jan, Threatened miscarriage O20.0 [facility] [address] [facility] [id number] [address] [place] [address] Jan, Encounter for test , result unknown Z32.00 [facility] [address] [id number] [address] [place] [phone] Jan, [facility] [address] [id number] [address] [place] [phone] Jan, [facility] [address] [facility] [id number] [address] [place] [phone] Jan, [place] [address] [place] [id number] [place] [phone] Dec, [facility] [address] [facility] [id number] [address] [place] [phone] Dec, [facility] [address] [place] [id number] [place] [address] Nov, [facility] [address] [facility] [id number] [address] [place] [phone] Nov, Chalazion left upper eyelid H00.14 [place] [address] [place] [id number] [place] [phone] 06 Feb, 2016 Routine follow-up Z39.2 ; Cervical high risk human papillomavirus (HPV) DNA test positive R87.810 and Atyp squam cell of undet signfc cyto smr crvx (ASC-US) R87.610 [place] [address] [address] [facility] [id number] [address] [place] [phone] 27 Dec, 2015 Normal in third tr imester Z34.93 and 39 weeks gestation of Z3A.39 [place] [address] [place] [id number] [place] [phone] Dec, Normal first confi rmed, currently in third trimester Z34.03 and 38 weeks gestation of Z3A.38 [place] [address] [address] [facility] [id number] [address] [place] [address] Dec, Normal first confi rmed, currently in third trimester Z34.03 and 37 weeks gestation of Z3A.37 [place] [address] [facility] [id number] [address] [place] [phone] Dec, Normal first confi rmed, currently in third trimester Z34.03 and 36 weeks gestation of Z3A.36 [place] [address] [address] [facility] [id number] [address] [place] [phone] Nov, [place] [address] [facility] [id number] [address] [place] [phone] Nov, Normal first confi rmed, currently in third trimester Z34.03 and 33 weeks gestation of Z3A.33 [place] [address] [address] [facility] [id number] [address] [place] [address] Nov, Normal first confi rmed, currently in third trimester Z34.03 ; 31 weeks gestation of Z3A.31 and Encounter for immunization Z23 [place] [address] [address] [facility] [id number] [address] [place] [phone] October, Normal first confi rmed, second trimester Z34.02 and 26 weeks gestation of Z3A.26 [place] [address] [facility] [id number] [address] [place] [address] Sep, Normal first confi rmed, second trimester Z34.02 ; Chlamydia infection affecting in second trimester, antepartum O98.312 and 22 weeks gestation of Z3A.22 [place] [address] [address] [facility] [id number] [address] [place] [address] Aug, 18 weeks gestation of pregna ncy Z3A.18 ; Normal first confirmed, second trimester Z34.02 and Chlamydia infection affecting in second trimester, antepartum O98.312 [place] [address] [address] [facility] [id number] [address] [place] [phone] Jul, [facility] [address] [facility] [id number] [address] [place] [address] Jul, [place] [address] [address] [facility] [id number] [address] [place] [address] Jul, care, first pregnan cy in second trimester Z34.02 ; with 14 completed weeks gestation Z3A.14 ; Vaginal discharge N89.8 ; Screening for malignant neoplasm of cervix Z12.4 and Routine screening for STI (sexually transmitted infection) Z11.3 [place] [address] [address] [facility] [id number] [address] [place] [phone] 11 Jun, 2015 Normal , first Z34. 00 ; Encounter for immunization Z23 ; care, first in first trimester Z34.01 and with 10 completed weeks gestation Z3A.10 [place] [address] [address] [facility] [id number] [address] [place] [phone] May, confirmed by posit torsten urine test Z32.01 IMMUNIZATIONS No Known Immunizations SOCIAL HISTORY Never Assessed REASON FOR VISIT OB 1wk f/u -- iris mcmahon PLAN OF CARE Activity Details Follow Up 1 Week Reason: VITAL SIGNS Height 57.5 in 2018-05-23 Weight 162.0 lbs 2018-05-23 Temperature 97.3 degrees Fahrenheit 2018-05-23 Heart Rate 72 bpm 2018-05-23 Respiratory Rate 20 2018-05-23 BMI 34.449 kg/m2 2018-05-23 Blood pressure systolic 110 mmHg 2018-05-23 Blood pressure diastolic 70 mmHg 2018-05-23 MEDICATIONS Medication Instructions Dosage Frequency Start Date End Date Duration S tatus Vitamins - (Dis) Active RESULTS Name Result Date Reference Range UA OB DIP (IN HOUSE) 2018-05-23 Glucose neg Protein neg PROCEDURES Procedure Date Ordered Result Body Site URINE-NO MICRO May 23, 2018 INSTRUCTIONS MEDICATIONS ADMINISTERED No Known Medications MEDICAL (GENERAL) HISTORY Type Description Date Hospitalization History child
--- OUTSIDE RECORDS SUMMARY | 2019-09-03 12:27 | XMS REPORT ---
Author Author Ingrid CONTRERAS Organization [facility] Address [address] [place] [address] Care Team Providers Care Development Executive Name Role Phone MYNOR CONTRERAS Unavailable PROBLEMS Type Condition ICD9-CM Code [id number] Code Onset Dates Condition S tatus SNOMED Code Problem Cervical high risk human papillomavirus (HPV) DN A test positive R87.810 Active 364595708 Problem BMI 35.0-35.9,adult Z68.35 Active 702805913953818 Problem Atyp squam cell of undet signfc cyto smr crvx (ASC-US) R87.610 Active 710346813 ALLERGIES No Known Allergies ENCOUNTERS Encounter Location Date Diagnosis [place] [address] [address] Sep, [place] [address] [address] Aug, [place] [address] [address] 25 Jul, 2019 care in third trimester Z34.93 ; 39 weeks gestation of Z3A.39 and BMI 35.0-35.9,adult Z68.35 [place] [address] [address] 18 Jul, 2019 Third trimester Z34.93 [place] [address] [address] 11 Jul, 2019 care in third trimester Z34.93 ; 37 weeks gestation of Z3A.37 and BMI 35.0-35.9,adult Z68.35 [place] [address] [address] Jun, care in third trimester Z34.93 ; 35 weeks gestation of Z3A.35 and BMI 35.0-35.9,adult Z68.[address] [address] 14 Jun, 2019 care in third trimester Z34.93 and 33 weeks gestation of Z3A.[address] [address] May, Third trimester Z34.93 ; 31 we eks gestation of Z3A.31 and Encounter for immunization Z23 [address] [address] May, 28 weeks gestation of Z3A.[address] [address] Apr, Second trimester Z34.92 ; Enco unter for immunization Z23 and 24 weeks gestation of Z3A.[address] [address] Mar, Second trimester Z34.92 ; 18 w eeks gestation of Z3A.18 ; Pap smear for cervical cancer screening Z12.4 ; Normal in multigravida Z34.80 and Screen for STD (sexually transmitted disease) Z11.[address] [address] 08 Mar, 2019 Second trimester Z34.92 ; 18 w eeks gestation of Z3A.18 ; Pap smear for cervical cancer screening Z12.4 ; Normal in multigravida Z34.80 ; Screen for STD (sexually transmitted disease) Z11.3 and Late care affecting in second trimester O09.[address] [address] Mar, [address] [address] Mar, Encounter for test Z32.[address] [address] Jun, care and examination Z39.2 an d control counseling Z30.09 [place] [address] [address] 11 May, 2018 Third trimester Z34.93 and 39 weeks gestation of Z3A.39 [place] [address] [address] 05 May, 2018 care in third trimester Z34.93 and 38 weeks gestation of Z3A.38 [place] [address] [address] 27 Apr, 2018 Third trimester Z34.93 and 37 weeks gestation of Z3A.37 [place] [address] [address] 20 Apr, 2018 36 weeks gestation of Z3A.36 a nd Third trimester Z33.[address] [address] 14 Apr, 2018 Third trimester Z34.93 [place] [address] [address] 07 Apr, 2018 Third trimester Z34.93 and 34 weeks gestation of Z3A.34 [place] [address] [address] Mar, care in third trimester Z34.93 and 32 weeks gestation of Z3A.32 [place] [address] [address] Mar, 30 weeks gestation of Z3A.30 ; Third trimester Z34.93 and Encounter for immunization Z23 [address] [address] Feb, Second trimester Z34.92 and 26 weeks gestation of Z3A.26 [place] [address] [place] [id number] [place] [address] Jan, 21 weeks gestation of Z3A.21 a nd Second trimester Z34.92 [place] [address] [address] 11 Dec, 2017 care in second trimester Z34.92 and 17 weeks gestation of Z3A.17 [place] [address] [address] Nov, care, subsequent in f irst trimester Z34.81 and 13 weeks gestation of Z3A.13 [place] [address] [address] October, [place] [address] [address] October, Normal in multigravida Z34.80 ; care in first trimester Z34.91 and 11 weeks gestation of Z3A.11 [place] [address] [address] Sep, [place] [address] [address] Sep, Positive test Z32.01 [place] [address] [address] Mar, [place] [address] [address] Feb, Threatened miscarriage O20.0 and Homeles s Z59.0 [place] [address] [address] Feb, Threatened miscarriage O20.0 [place] [address] [address] Jan, Threatened miscarriage O20.0 [place] [address] [address] Jan, Encounter for test, result unk nown Z32.00 [place] [address] [address] Jan, [place] [address] [address] Jan, [place] [address] [address] Jan, [place] [address] [address] Dec, [place] [address] [address] Dec, [place] [address] [address] Nov, [address] [address] Nov, Chalazion left upper eyelid H00.[address] [address] 06 Feb, 2016 Routine follow-up Z39.2 ; Cer vical high risk human papillomavirus (HPV) DNA test positive R87.810 and Atyp squam cell of undet signfc cyto smr crvx (ASC-US) R87.610 [place] [address] [address] Dec, Normal in third trimester Z34. 93 and 39 weeks gestation of Z3A.[address] [address] Dec, Normal first confirmed, curren tly in third trimester Z34.03 and 38 weeks gestation of Z3A.38 [place] [address] [address] Dec, Normal first confirmed, curren tly in third trimester Z34.03 and 37 weeks gestation of Z3A.[address] [address] Dec, Normal first confirmed, curren tly in third trimester Z34.03 and 36 weeks gestation of Z3A.[address] [address] Nov, [place] [address] [place] [address] Nov, Normal first confirmed, curren tly in third trimester Z34.03 and 33 weeks gestation of Z3A.[address] [address] Nov, Normal first confirmed, curren tly in third trimester Z34.03 ; 31 weeks gestation of Z3A.31 and Encounter for immunization Z23 [address] [address] October, Normal first confirmed, second trimester Z34.02 and 26 weeks gestation of Z3A.[address] [address] Sep, Normal first confirmed, second trimester Z34.02 ; Chlamydia infection affecting in second trimester, antepartum O98.312 and 22 weeks gestation of Z3A.[address] [address] Aug, 18 weeks gestation of Z3A.18 ; Normal first confirmed, second trimester Z34.02 and Chlamydia infection affecting in second trimester, antepartum O98.[address] [address] Jul, [address] [address] Jul, [address] [address] Jul, care, first in second trimester Z34.02 ; with 14 completed weeks gestation Z3A.14 ; Vaginal discharge N89.8 ; Screening for malignant neoplasm of cervix Z12.4 and Routine screening for STI (sexually transmitted infection) Z11.[address] [address] Jun, Normal , first Z34.00 ; Encount er for immunization Z23 ; care, first in first trimester Z34.01 and with 10 completed weeks gestation Z3A.10 [facility] [address] [facility] [id number] [place] [address] May, confirmed by positive urine te st Z32.01 IMMUNIZATIONS No Known Immunizations SOCIAL HISTORY Never Assessed REASON FOR VISIT PLAN OF CARE Activity Details Follow Up 1 Year with PCP for well wom an Reason: VITAL SIGNS Height 57.5 in 2018-07-27 Weight 146 lbs 2018-07-27 Temperature 98.0 degrees Fahrenheit 2018-07-27 Heart Rate 68 bpm 2018-07-27 Respiratory Rate 18 2018-07-27 BMI 31.04 kg/m2 2018-07-27 Blood pressure systolic 120 mmHg 2018-07-27 Blood pressure diastolic 70 mmHg 2018-07-27 MEDICATIONS Medication Instructions Dosage Frequency Start Date End Date Duration S tatus Vitamins - (Dis) Active RESULTS No Results PROCEDURES No Known procedures INSTRUCTIONS MEDICATIONS ADMINISTERED No Known Medications MEDICAL (GENERAL) HISTORY Type Description Date Surgical History No Surgical history information Hospitalization History child 01/2016 Hospitalization History childbirth 05/2018
--- OUTSIDE RECORDS SUMMARY | 2019-09-03 12:27 | XMS REPORT ---
Author Author Ingrid CONTRERAS [facility] Address [address] [place] [address] Care Team Providers Care Tire Curer Name Role Phone MYNOR CONTRERAS Unavailable PROBLEMS Type Condition ICD9-CM Code EFS55-DI Code Onset Dates Condition S tatus SNOMED Code Problem Cervical high risk human papillomavirus (HPV) DN A test positive R87.810 Active 295868332 Problem Atyp squam cell of undet signfc cyto smr crvx (ASC-US) R87.610 Active 499191973 ALLERGIES No Known Allergies ENCOUNTERS Encounter Location Date Diagnosis [place] [address] [address] [place] [id number] [place] [address] Apr, [place] [address] [address] [place] [id number] [place] [address] Apr, [place] [address] [address] Apr, [place] [address] [address] [place] [id number] [place] [address] Apr, Third trimester Z3 4.93 and 34 weeks gestation of Z3A.34 [place] [address] [address] [place] [id number] [place] [address] Mar, care in third trime ster Z34.93 and 32 weeks gestation of Z3A.32 [place] [address] [address] Mar, 30 weeks gestation of pregna ncy Z3A.30 ; Third trimester Z34.93 and Encounter for immunization Z23 [place] [address] [address] [place] [id number] [place] [address] Feb, Second trimester Z 34.92 and 26 weeks gestation of Z3A.26 [facility] [address] [id number] [address] [place] [address] Jan, 21 weeks gestation of pregna ncy Z3A.21 and Second trimester Z34.92 [facility] [address] [id number] [address] [place] [address] Dec, care in second trim karyn Z34.92 and 17 weeks gestation of Z3A.17 [facility] [address] [id number] [address] [place] [address] Nov, care, subsequent pr egnancy in first trimester Z34.81 and 13 weeks gestation of Z3A.13 [place] [address] [facility] [id number] [address] [place] [address] October, [place] [address] [facility] [id number] [address] [place] [address] October, Normal in multigra janet Z34.80 ; care in first trimester Z34.91 and 11 weeks gestation of Z3A.11 [place] [address] [facility] [id number] [address] [place] [address] Sep, [place] [address] [facility] [id number] [address] [place] [address] Sep, Positive test Z32. 01 [place] [address] [facility] [id number] [address] [place] [address] Mar, [place] [address] [facility] [id number] [address] [place] [address] Feb, Threatened miscarriage O20.0 and Homeless Z59.0 [place] [address] [facility] [id number] [address] [place] [address] Feb, Threatened miscarriage O20.0 [place] [address] [place] [id number] [address] [place] [address] Jan, Threatened miscarriage O20.0 [place] [address] [id number] [address] [place] [address] Jan, Encounter for test , result unknown Z32.00 [facility] [address] [id number] [address] [place] [address] Jan, [facility] [address] [id number] [address] [place] [address] Jan, [facility] [address] [id number] [address] [place] [address] Jan, [facility] [address] [id number] [address] [place] [address] Dec, [facility] [address] [id number] [address] [place] [address] Dec, [place] [address] [facility] [id number] [address] [place] [address] Nov, [place] [address] [facility] [id number] [address] [place] [address] Nov, Chalazion left upper eyelid H00.14 [place] [address] [facility] [id number] [address] [place] [address] 06 Feb, 2016 Routine follow-up Z39.2 ; Cervical high risk human papillomavirus (HPV) DNA test positive R87.810 and Atyp squam cell of undet signfc cyto smr crvx (ASC-US) R87.610 [place] [address] [facility] [id number] [address] [place] [address] Dec, Normal in third tr imester Z34.93 and 39 weeks gestation of Z3A.39 [place] [address] [place] [id number] [address] [place] [address] Dec, Normal first confi rmed, currently in third trimester Z34.03 and 38 weeks gestation of Z3A.38 [place] [address] [place] [id number] [address] [place] [address] Dec, Normal first confi rmed, currently in third trimester Z34.03 and 37 weeks gestation of Z3A.37 [place] [address] [facility] [id number] [address] [place] [address] Dec, Normal first confi rmed, currently in third trimester Z34.03 and 36 weeks gestation of Z3A.36 [place] [address] [place] [id number] [address] [place] [address] Nov, [place] [address] [place] [id number] [address] [place] [address] Nov, Normal first confi rmed, currently in third trimester Z34.03 and 33 weeks gestation of Z3A.33 [place] [address] [place] [id number] [place] [address] Nov, Normal first confi rmed, currently in third trimester Z34.03 ; 31 weeks gestation of Z3A.31 and Encounter for immunization Z23 [place] [id number] [place] [address] October, Normal first confi rmed, second trimester Z34.02 and 26 weeks gestation of Z3A.26 [place] [address] [place] [id number] [address] [place] [address] Sep, Normal first confi rmed, second trimester Z34.02 ; Chlamydia infection affecting in second trimester, antepartum O98.312 and 22 weeks gestation of Z3A.22 [place] [address] [place] [id number] [address] [place] [address] Aug, 18 weeks gestation of pregna ncy Z3A.18 ; Normal first confirmed, second trimester Z34.02 and Chlamydia infection affecting in second trimester, antepartum O98.312 [place] [address] [place] [id number] [address] [place] [address] Jul, [place] [address] [place] [id number] [address] [place] [address] Jul, [place] [address] [facility] [id number] [address] [place] [address] 08 Jul, 2015 care, first pregnan cy in second trimester Z34.02 ; with 14 completed weeks gestation Z3A.14 ; Vaginal discharge N89.8 ; Screening for malignant neoplasm of cervix Z12.4 and Routine screening for STI (sexually transmitted infection) Z11.3 [place] [address] [facility] [id number] [address] [place] [address] 11 Jun, 2015 Normal , first Z34. 00 ; Encounter for immunization Z23 ; care, first in first trimester Z34.01 and with 10 completed weeks gestation Z3A.10 [place] [address] [facility] [id number] [address] [place] [address] 30 May, 2015 confirmed by posit torsten urine test Z32.01 IMMUNIZATIONS No Known Immunizations SOCIAL HISTORY Never Assessed REASON FOR VISIT OB 2wk f/u , Sandra MON, OB dip Sandra MON PLAN OF CARE Activity Details Follow Up 1 Week Reason: Pending Test UA OB DIP (IN HOUSE) VITAL SIGNS Height 57.5 in 2018-05-03 Weight 166.0 lbs 2018-05-03 Temperature 98.6 degrees Fahrenheit 2018-05-03 Heart Rate 101 bpm 2018-05-03 Respiratory Rate 20 2018-05-03 BMI 35.3 kg/m2 2018-05-03 Blood pressure systolic 102 mmHg 2018-05-03 Blood pressure diastolic 62 mmHg 2018-05-03 MEDICATIONS Medication Instructions Dosage Frequency Start Date End Date Duration S tatus Vitamins - (Dis) Active RESULTS No Results PROCEDURES Procedure Date Ordered Result Body Site URINE-NO MICRO May 03, 2018 INSTRUCTIONS MEDICATIONS ADMINISTERED No Known Medications MEDICAL (GENERAL) HISTORY Type Description Date Hospitalization History child
--- OUTSIDE RECORDS SUMMARY | 2019-09-03 12:27 | XMS REPORT ---
Author Author Ingrid CONTRERAS [facility] Address [address] [place] [address] Care Team Providers Care Ramp Manager Name Role Phone MYNOR CONTRERAS Unavailable PROBLEMS Type Condition ICD9-CM Code [id number] Code Onset Dates Condition S tatus SNOMED Code Problem Cervical high risk human papillomavirus (HPV) DN A test positive R87.810 Active 936554529 Problem Atyp squam cell of undet signfc cyto smr crvx (ASC-US) R87.610 Active [id number] ALLERGIES No Information ENCOUNTERS Encounter Location Date Diagnosis [place] [address] [place] [phone] Apr, [place] [address] [place] [address] Apr, 36 weeks gestation of pregna ncy Z3A.36 and Third trimester Z33.1 [place] [address] [place] [id number] [place] [phone] Apr, Third trimester Z3 4.93 [place] [address] [place] [id number] [place] [phone] 07 Apr, 2018 Third trimester Z3 4.93 and 34 weeks gestation of Z3A.34 [place] [address] [place] [id number] [place] [phone] Mar, care in third trime ster Z34.93 and 32 weeks gestation of Z3A.32 [place] [address] [place] [id number] [place] [address] Mar, 30 weeks gestation of pregna ncy Z3A.30 ; Third trimester Z34.93 and Encounter for immunization Z23 [place] [address] [place] [id number] [place] [phone] 11 Feb, 2018 Second trimester Z 34.92 and 26 weeks gestation of Z3A.26 [place] [address] [place] [id number] [place] [phone] 09 Jan, 2018 21 weeks gestation of pregna ncy Z3A.21 and Second trimester Z34.92 [place] [address] [place] [id number] [place] [address] Dec, care in second trim karyn Z34.92 and 17 weeks gestation of Z3A.17 [place] [address] [address] 13 Nov, 2017 care, subsequent pr egnancy in first trimester Z34.81 and 13 weeks gestation of Z3A.13 [place] [address] [place] [id number] [place] [phone] October, [place] [address] [address] October, Normal in multigra janet Z34.80 ; care in first trimester Z34.91 and 11 weeks gestation of Z3A.11 [place] [address] [place] [id number] [address] [place] [phone] Sep, [place] [address] [place] [id number] [address] [place] [phone] Sep, Positive test Z32. 01 [place] [address] [place] [id number] [place] [phone] Mar, [place] [address] [phone] 13 Feb, 2017 Threatened miscarriage O20.0 and Homeless Z59.0 [place] [address] [place] [id number] [place] [phone] 05 Feb, 2017 Threatened miscarriage O20.0 [place] [address] [place] [id number] [place] [phone] Jan, Threatened miscarriage O20.0 [facility] [address] [id number] [address] [place] [phone] Jan, Encounter for test , result unknown Z32.00 [facility] [address] [facility] [id number] [address] [place] [phone] Jan, [facility] [address] [facility] [id number] [address] [place] [phone] Jan, [facility] [address] [facility] [id number] [address] [place] [phone] Jan, [facility] [address] [facility] [id number] [address] [place] [phone] Dec, [facility] [address] [place] [id number] [place] [phone] Dec, [place] [address] [place] [id number] [place] [phone] Nov, [facility] [address] [place] [id number] [place] [phone] Nov, Chalazion left upper eyelid H00.14 [place] [address] [place] [id number] [place] [phone] 06 Feb, 2016 Routine follow-up Z39.2 ; Cervical high risk human papillomavirus (HPV) DNA test positive R87.810 and Atyp squam cell of undet signfc cyto smr crvx (ASC-US) R87.610 [facility] [address] [facility] [id number] [address] [place] [address] Dec, Normal in third tr imester Z34.93 and 39 weeks gestation of Z3A.39 [place] [address] [place] [id number] [place] [address] Dec, Normal first sabrina soto, currently in third trimester Z34.03 and 38 weeks gestation of Z3A.38 [place] [address] [place] [id number] [address] [place] [phone] Dec, Normal first confi rmed, currently in third trimester Z34.03 and 37 weeks gestation of Z3A.37 [place] [address] [facility] [id number] [address] [place] [phone] Dec, Normal first confi rmed, currently in third trimester Z34.03 and 36 weeks gestation of Z3A.36 [place] [address] [facility] [id number] [address] [place] [phone] Nov, [place] [address] [facility] [id number] [address] [place] [address] Nov, Normal first confi rmed, currently in third trimester Z34.03 and 33 weeks gestation of Z3A.33 [place] [address] [place] [id number] [place] [phone] Nov, Normal first confi rmed, currently in third trimester Z34.03 ; 31 weeks gestation of Z3A.31 and Encounter for immunization Z23 [place] [address] [facility] [id number] [address] [place] [phone] October, Normal first confi rmed, second trimester Z34.02 and 26 weeks gestation of Z3A.26 [place] [address] [facility] [id number] [address] [place] [phone] Sep, Normal first confi rmed, second trimester Z34.02 ; Chlamydia infection affecting in second trimester, antepartum O98.312 and 22 weeks gestation of Z3A.22 [place] [address] [facility] [id number] [address] [place] [phone] Aug, 18 weeks gestation of pregna ncy Z3A.18 ; Normal first confirmed, second trimester Z34.02 and Chlamydia infection affecting in second trimester, antepartum O98.312 [place] [address] [facility] [id number] [address] [place] [phone] Jul, [place] [address] [facility] [id number] [address] [place] [phone] 22 Jul, [address] [id number] [address] [place] [phone] 08 Jul, 2015 care, first pregnan cy in second trimester Z34.02 ; with 14 completed weeks gestation Z3A.14 ; Vaginal discharge N89.8 ; Screening for malignant neoplasm of cervix Z12.4 and Routine screening for STI (sexually transmitted infection) Z11.[address] [id number] [address] [place] [phone] 11 Jun, 2015 Normal , first Z34. 00 ; Encounter for immunization Z23 ; care, first in first trimester Z34.01 and with 10 completed weeks gestation Z3A.[address] [id number] [address] [place] [phone] 30 May, 2015 confirmed by posit torsten urine test Z32.01 IMMUNIZATIONS No Known Immunizations SOCIAL HISTORY Never Assessed REASON FOR VISIT OB 1wk f/u -- iris mcmahon PLAN OF CARE Activity Details Follow Up 1 Week Reason: Pending Test CULTURE, GROUP B STREP (VAGI NAL) VITAL SIGNS Height 57.5 in 2018-05-16 Weight 163.6 lbs 2018-05-16 Temperature 97.6 degrees Fahrenheit 2018-05-16 Heart Rate 80 bpm 2018-05-16 Respiratory Rate 22 2018-05-16 BMI 34.79 kg/m2 2018-05-16 Blood pressure systolic 118 mmHg 2018-05-16 Blood pressure diastolic 70 mmHg 2018-05-16 MEDICATIONS Medication Instructions Dosage Frequency Start Date End Date Duration S tatus Vitamins - (Dis) Active RESULTS Name Result Date Reference Range UA OB DIP (IN HOUSE) 2018-05-16 Glucose negative Protein 1+ PROCEDURES Procedure Date Ordered Result Body Site URINE-NO MICRO May 16, 2018 STREP CULTURE May 16, 2018 INSTRUCTIONS MEDICATIONS ADMINISTERED No Known Medications MEDICAL (GENERAL) HISTORY Type Description Date Hospitalization History child
--- OUTSIDE RECORDS SUMMARY | 2019-09-03 12:28 | XMS REPORT ---
Author Author Ingrid ESTEBNA [facility] e[employer] Address Unknown Phone Unavailable Care Team Providers Care Hydraulic Riveter Name Role Phone KUNAL ESTEBAN CP Unavailable Allergies No Known Allergies Problems Problem Type Condition Code Onset Dates Condition Statu s Problem Chlamydia infection affecting in second trimester, antepartum O98.312 Active Assessment Normal first confirmed, curren tly in third trimester Z34.03 Active Problem Normal first confirmed, second trimester Z34 .02 Active Assessment 38 weeks gestation of Z3A.38 Active Medications Medication Code System Code Instructions Start Date End Date Status Dosage Vitamin [facility] [address]26 27-0.8 MG Orally Jul 28, 2015 not defined Procedures Procedure Coding System Code Date Office Visit, Est Pt., Level 3 CPT-4 74268 J 2015 URINE-NO MICRO CPT-4 35358 January 14, 2016 Vital Signs Date/Time: January 14, 2016 Cardiac Monitoring Heart Rate 78 bpm Weight 151.0 lbs Height 57.5 in Blood Pressure Diastolic 76 mmHg Blood Pressure Systolic 118 mmHg Results No Known Results Summary Purpose eClinicalWorks Submission
--- OUTSIDE RECORDS SUMMARY | 2019-09-03 12:28 | XMS REPORT ---
Author Author Ingrid CONTRERAS [facility] Address [address] [place] [address] Care Team Providers Care Sales Representative [employer] Name Role Phone MYNOR CONTRERAS Unavailable PROBLEMS Type Condition ICD9-CM Code VNY57-IJ Code Onset Dates Condition S tatus SNOMED Code Problem Cervical high risk human papillomavirus (HPV) DN A test positive R87.810 Active 406222676 Problem Atyp squam cell of undet signfc cyto smr crvx (ASC-US) R87.610 Active [id number] ALLERGIES No Known Allergies ENCOUNTERS Encounter Location Date Diagnosis [place] [address] [place] [address] Apr, [place] [address] [place] [id number] [place] [phone] Apr, [place] [address] [address] Apr, [place] [address] [place] [id number] [place] [address] Apr, [place] [address] [place] [id number] [place] [phone] Mar, care in third trime ster Z34.93 and 32 weeks gestation of Z3A.32 [facility] [address] [facility] [id number] [address] [place] [phone] 10 Mar, 2018 30 weeks gestation of pregna ncy Z3A.30 ; Third trimester Z34.93 and Encounter for immunization Z23 [place] [address] [facility] [id number] [address] [place] [phone] Feb, Second trimester Z 34.92 and 26 weeks gestation of Z3A.26 [place] [address] [facility] [id number] [address] [place] [phone] 09 Jan, 2018 21 weeks gestation of pregna ncy Z3A.21 and Second trimester Z34.92 [place] [address] [facility] [id number] [address] [place] [phone] Dec, care in second trim karyn Z34.92 and 17 weeks gestation of Z3A.17 [place] [address] [facility] [id number] [address] [place] [phone] Nov, care, subsequent pr egnancy in first trimester Z34.81 and 13 weeks gestation of Z3A.13 [place] [address] [place] [id number] [place] [phone] 16 Oct, 2017 Normal in multigra janet Z34.80 ; care in first trimester Z34.91 and 11 weeks gestation of Z3A.11 [place] [address] [place] [id number] [place] [phone] October, [place] [address] [place] [id number] [place] [phone] Sep, [place] [address] [place] [id number] [place] [address] Sep, Positive test Z32. 01 [place] [address] [place] [id number] [place] [address] Mar, [place] [address] [place] [id number] [place] [phone] Feb, Threatened miscarriage O20.0 and Homeless Z59.0 [place] [address] [facility] [id number] [address] [place] [phone] Feb, Threatened miscarriage O20.0 [place] [address] [facility] [id number] [address] [place] [address] Jan, Threatened miscarriage O20.0 [place] [address] [facility] [id number] [address] [place] [address] Jan, Encounter for test , result unknown Z32.00 [facility] [address] [id number] [address] [place] [phone] Jan, [facility] [address] [id number] [address] [place] [phone] Jan, [facility] [address] [id number] [address] [place] [phone] Jan, [facility] [address] [id number] [address] [place] [phone] Dec, [facility] [address] [id number] [address] [place] [phone] Dec, [place] [address] [id number] [address] [place] [phone] Nov, [place] [address] [facility] [id number] [address] [place] [phone] Nov, Chalazion left upper eyelid H00.14 [facility] [address] [facility] [id number] [address] [place] [address] 06 Feb, 2016 Routine follow-up Z39.2 ; Cervical high risk human papillomavirus (HPV) DNA test positive R87.810 and Atyp squam cell of undet signfc cyto smr crvx (ASC-US) R87.610 [place] [address] [facility] [id number] [address] [place] [phone] 27 Dec, 2015 Normal in third tr imester Z34.93 and 39 weeks gestation of Z3A.39 [facility] [address] [facility] [id number] [address] [place] [phone] 20 Dec, 2015 Normal first confi rmed, currently in third trimester Z34.03 and 38 weeks gestation of Z3A.38 [place] [address] [facility] [id number] [address] [place] [address] 13 Dec, 2015 Normal first confi rmed, currently in third trimester Z34.03 and 37 weeks gestation of Z3A.37 [place] [address] [facility] [id number] [address] [place] [address] Dec, Normal first confi rmed, currently in third trimester Z34.03 and 36 weeks gestation of Z3A.36 [place] [address] [id number] [address] [place] [address] Nov, [place] [address] [facility] [id number] [address] [place] [address] Nov, Normal first confi rmed, currently in third trimester Z34.03 and 33 weeks gestation of Z3A.33 [place] [address] [facility] [id number] [address] [place] [address] Nov, Normal first confi rmed, currently in third trimester Z34.03 ; 31 weeks gestation of Z3A.31 and Encounter for immunization Z23 [place] [address] [facility] [id number] [address] [place] [phone] October, Normal first confi rmed, second trimester Z34.02 and 26 weeks gestation of Z3A.26 [place] [address] [facility] [id number] [address] [place] [address] Sep, Normal first confi rmed, second trimester Z34.02 ; Chlamydia infection affecting in second trimester, antepartum O98.312 and 22 weeks gestation of Z3A.22 [place] [address] [facility] [id number] [address] [place] [address] Aug, 18 weeks gestation of pregna ncy Z3A.18 ; Normal first confirmed, second trimester Z34.02 and Chlamydia infection affecting in second trimester, antepartum O98.312 [place] [address] [facility] [id number] [address] [place] [address] Jul, [place] [address] [facility] [id number] [address] [place] [phone] Jul, [place] [address] [facility] [id number] [address] [place] [phone] 08 Jul, 2015 care, first pregnan cy in second trimester Z34.02 ; with 14 completed weeks gestation Z3A.14 ; Vaginal discharge N89.8 ; Screening for malignant neoplasm of cervix Z12.4 and Routine screening for STI (sexually transmitted infection) Z11.3 [facility] [address] [facility] [id number] [address] [place] [phone] 11 Jun, 2015 Normal , first Z34. 00 ; Encounter for immunization Z23 ; care, first in first trimester Z34.01 and with 10 completed weeks gestation Z3A.10 [facility] [address] [facility] [id number] [address] [place] [phone] 30 May, 2015 confirmed by posit torsten urine test Z32.01 IMMUNIZATIONS No Known Immunizations SOCIAL HISTORY Never Assessed REASON FOR VISIT OB 4wk f/u PLAN OF CARE Activity Details Follow Up 4 Weeks Reason: VITAL SIGNS Height 57.5 in 2018-02-02 Weight 152.2 lbs 2018-02-02 Temperature 99.4 degrees Fahrenheit 2018-02-02 Heart Rate 92 bpm 2018-02-02 Respiratory Rate 20 2018-02-02 BMI 32.365 kg/m2 2018-02-02 Blood pressure systolic 116 mmHg 2018-02-02 Blood pressure diastolic 60 mmHg 2018-02-02 MEDICATIONS Medication Instructions Dosage Frequency Start Date End Date Duration S tatus Vitamins - (Dis) Active RESULTS Name Result Date Reference Range UA OB DIP (IN HOUSE) 2018-02-02 Glucose negative Protein negative PROCEDURES Procedure Date Ordered Result Body Site URINE-NO MICRO Feb 02, 2018 INSTRUCTIONS MEDICATIONS ADMINISTERED No Known Medications MEDICAL (GENERAL) HISTORY Type Description Date Hospitalization History child
--- OUTSIDE RECORDS SUMMARY | 2019-09-03 12:28 | XMS REPORT ---
Author Author Ingrid ESTEBAN [facility] Address [address] [place] [address] Care Team Providers Care Owner Operator Name Role Phone EULALIA KUNAL Unavailable PROBLEMS Type Condition ICD9-CM Code OXE20-EX Code Onset Dates Condition S tatus SNOMED Code Problem Cervical high risk human papillomavirus (HPV) DN A test positive R87.810 Active 194123267 Problem Atyp squam cell of undet signfc cyto smr crvx (ASC-US) R87.610 Active 727609182 ALLERGIES No Information ENCOUNTERS Encounter Location Date Diagnosis [place] [address] [address] Sep, [place] [address] [address] Sep, Positive test Z32. 01 [place] [address] [address] Mar, [place] [address] [address] [place] [id number] [address] [place] [address] Feb, Threatened miscarriage O20.0 and Homeless Z59.0 [place] [address] [address] [place] [id number] [address] [place] [phone] Feb, Threatened miscarriage O20.0 [place] [address] [address] [place] [id number] [address] [place] [phone] Jan, Threatened miscarriage O20.0 [place] [address] [place] [id number] [address] [place] [phone] Jan, Encounter for test , result unknown Z32.00 [place] [address] [address] Jan, [facility] [address] [id number] [address] [place] [phone] Jan, [facility] [address] [id number] [address] [place] [phone] Jan, [facility] [address] [id number] [address] [place] [phone] Dec, [facility] [address] [id number] [address] [place] [phone] Dec, [facility] [address] [id number] [address] [place] [phone] Nov, [facility] [address] [id number] [address] [place] [phone] Nov, Chalazion left upper eyelid H00.14 [place] [address] [address] [facility] [id number] [address] [place] [phone] 06 Feb, 2016 Routine follow-up Z39.2 ; Cervical high risk human papillomavirus (HPV) DNA test positive R87.810 and Atyp squam cell of undet signfc cyto smr crvx (ASC-US) R87.610 [place] [address] [address] [facility] [id number] [address] [place] [phone] 27 Dec, 2015 Normal in third tr imester Z34.93 and 39 weeks gestation of Z3A.39 [place] [address] [address] [facility] [id number] [address] [place] [phone] 20 Dec, 2015 Normal first confi rmed, currently in third trimester Z34.03 and 38 weeks gestation of Z3A.38 [place] [address] [address] [facility] [id number] [address] [place] [phone] 13 Dec, 2015 Normal first confi rmed, currently in third trimester Z34.03 and 37 weeks gestation of Z3A.37 [place] [address] [address] [facility] [id number] [address] [place] [phone] Dec, Normal first confi rmed, currently in third trimester Z34.03 and 36 weeks gestation of Z3A.36 [place] [address] [address] [facility] [id number] [address] [place] [phone] Nov, [place] [address] [address] [facility] [id number] [address] [place] [phone] Nov, Normal first confi rmed, currently in third trimester Z34.03 and 33 weeks gestation of Z3A.33 [place] [address] [address] [place] [id number] [address] [place] [phone] Nov, Normal first confi rmed, currently in third trimester Z34.03 ; 31 weeks gestation of Z3A.31 and Encounter for immunization Z23 [place] [address] [address] [place] [id number] [address] [place] [phone] October, Normal first confi rmed, second trimester Z34.02 and 26 weeks gestation of Z3A.26 [place] [address] [address] [place] [id number] [address] [place] [phone] Sep, Normal first confi rmed, second trimester Z34.02 ; Chlamydia infection affecting in second trimester, antepartum O98.312 and 22 weeks gestation of Z3A.22 [place] [address] [address] [place] [id number] [address] [place] [phone] Aug, 18 weeks gestation of pregna ncy Z3A.18 ; Normal first confirmed, second trimester Z34.02 and Chlamydia infection affecting in second trimester, antepartum O98.312 [place] [address] [place] [id number] [address] [place] [phone] Jul, [place] [address] [place] [id number] [address] [place] [phone] Jul, [place] [address] [place] [id number] [address] [place] [phone] 08 Jul, 2015 care, first pregnan cy in second trimester Z34.02 ; with 14 completed weeks gestation Z3A.14 ; Vaginal discharge N89.8 ; Screening for malignant neoplasm of cervix Z12.4 and Routine screening for STI (sexually transmitted infection) Z11.3 [facility] [address] [facility] [id number] [address] [place] [phone] Jun, Encounter for immunization Z 23 ; Normal , first Z34.00 ; care, first in first trimester Z34.01 and with 10 completed weeks gestation Z3A.10 [facility] [address] [facility] [id number] [address] [place] [phone] May, confirmed by posit torsten urine test Z32.01 IMMUNIZATIONS No Known Immunizations SOCIAL HISTORY Never Assessed REASON FOR VISIT called pt PLAN OF CARE VITAL SIGNS MEDICATIONS Unknown Medications RESULTS No Results PROCEDURES No Known procedures INSTRUCTIONS MEDICATIONS ADMINISTERED No Known Medications MEDICAL (GENERAL) HISTORY Type Description Date Hospitalization History child
--- OUTSIDE RECORDS SUMMARY | 2019-09-03 12:28 | XMS REPORT ---
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 01 [place] [address] [address] Mar, [place] [address] [address] [place] [id number] [address] [place] [phone] Feb, Threatened miscarriage O20.0 and Homeless Z59.0 [place] [address] [address] [place] [id number] [address] [place] [phone] Feb, Threatened miscarriage O20.0 [place] [address] [address] [place] [id number] [address] [place] [phone] Jan, Threatened miscarriage O20.0 [place] [address] [address] [place] [id number] [address] [place] [phone] Jan, Encounter for test , result unknown Z32.00 [place] [address] [address] Jan, [facility] [address] [id number] [address] [place] [phone] Jan, [facility] [address] [id number] [address] [place] [phone] Jan, [facility] [address] [id number] [address] [place] [phone] Dec, [facility] [address] [id number] [address] [place] [phone] Dec, [facility] [address] [id number] [address] [place] [phone] Nov, [place] [address] [address] [facility] [id number] [address] [place] [phone] Nov, Chalazion left upper eyelid H00.14 [place] [address] [address] [facility] [id number] [address] [place] [phone] 06 Feb, 2016 Routine follow-up Z39.2 ; Cervical high risk human papillomavirus (HPV) DNA test positive R87.810 and Atyp squam cell of undet signfc cyto smr crvx (ASC-US) R87.610 [place] [id number] [facility] [id number] [address] [place] [phone] Dec, Normal in third tr imester Z34.93 and 39 weeks gestation of Z3A.39 [place] [id number] [address] [facility] [id number] [address] [place] [phone] Dec, Normal first confi rmed, currently in third trimester Z34.03 and 38 weeks gestation of Z3A.38 [facility] [address] [facility] [id number] [address] [place] [phone] 13 Dec, 2015 Normal first confi rmed, currently in third trimester Z34.03 and 37 [address]37 [facility] [address] [facility] [id number] [address] [place] [phone] Dec, Normal first confi rmed, currently in third trimester Z34.03 and 36 weeks gestation of Z3A.36 [place] [address] [address] [facility] [id number] [address] [place] [phone] Nov, [place] [address] [address] [facility] [id number] [address] [place] [phone] Nov, Normal first confi rmed, currently in third trimester Z34.03 and 33 weeks gestation of Z3A.33 [place] [address] [address] [facility] [id number] [address] [place] [address] Nov, Normal first confi rmed, currently in third trimester Z34.03 ; 31 weeks gestation of Z3A.31 and Encounter for immunization Z23 [place] [address] [address] [facility] [id number] [address] [place] [phone] October, Normal first confi rmed, second trimester Z34.02 and 26 weeks gestation of Z3A.26 [place] [address] [address] [place] [id number] [address] [place] [phone] Sep, Normal first confi rmed, second trimester Z34.02 ; Chlamydia infection affecting in second trimester, antepartum O98.312 and 22 weeks gestation of Z3A.22 [place] [address] [address] [facility] [id number] [address] [place] [phone] Aug, 18 weeks gestation of pregna ncy Z3A.18 ; Normal first confirmed, second trimester Z34.02 and Chlamydia infection affecting in second trimester, antepartum O98.312 [place] [address] [address] [facility] [id number] [address] [place] [phone] Jul, [place] [address] [address] [facility] [id number] [address] [place] [phone] Jul, [place] [address] [address] [place] [id number] [address] [place] [phone] Jul, care, first pregnan cy in second trimester Z34.02 ; with 14 completed weeks gestation Z3A.14 ; Vaginal discharge N89.8 ; Screening for malignant neoplasm of cervix Z12.4 and Routine screening for STI (sexually transmitted infection) Z11.3 [facility] [address] [facility] [id number] [address] [place] [phone] 11 Jun, 2015 Normal , first Z34. 00 ; Encounter for immunization Z23 ; care, first in first trimester Z34.01 and with 10 completed [address]10 [facility] [address] [facility] [id number] [address] [place] [phone] 30 May, 2015 confirmed by posit torsten urine test Z32.01 IMMUNIZATIONS No Known Immunizations SOCIAL HISTORY Never Assessed REASON FOR VISIT Lab (walk-in) PLAN OF CARE VITAL SIGNS MEDICATIONS Unknown Medications RESULTS No Results PROCEDURES Procedure Date Ordered Result Body Site CHORIONIC GONADOTROPIN TEST Mar 09, 2017 VENIPUNCT, ROUTINE* Mar 09, 2017 INSTRUCTIONS MEDICATIONS ADMINISTERED No Known Medications MEDICAL (GENERAL) HISTORY Type Description Date Hospitalization History child
--- OUTSIDE RECORDS SUMMARY | 2019-09-03 12:28 | XMS REPORT ---
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 222021338 ALLERGIES No Information ENCOUNTERS Encounter Location Date Diagnosis [place] [address] [address] Mar, [facility] [address] [address] Feb, Threatened miscarriage O20.0 and Homeless Z59.0 [place] [address] [address] Feb, Threatened miscarriage O20.0 [place] [address] [address] Jan, Threatened miscarriage O20.0 [facility] [address] [address] Jan, Encounter for test , result unknown Z32.00 [facility] [address] [address] Jan, [facility] [address] [address] Jan, [place] [address] [address] Jan, [place] [address] [id number] [address] [place] [phone] Dec, [facility] [address] [id number] [address] [place] [phone] Dec, [facility] [address] [id number] [address] [place] [phone] Nov, [facility] [address] [id number] [address] [place] [phone] Nov, Chalazion left upper eyelid H00.14 [facility] [address] [id number] [address] [place] [phone] 06 Feb, 2016 Routine follow-up Z39.2 ; Cervical high risk human papillomavirus (HPV) DNA test positive R87.810 and Atyp squam cell of undet signfc cyto smr crvx (ASC-US) R87.610 [place] [address] [id number] [address] [place] [phone] 27 Dec, 2015 Normal in third tr imester Z34.93 and 39 weeks gestation of Z3A.39 [place] [address] [address] [facility] [id number] [address] [place] [phone] Dec, Normal first confi rmed, currently in third trimester Z34.03 and 38 weeks gestation of Z3A.38 [place] [address] [address] [facility] [id number] [address] [place] [phone] 13 Dec, 2015 Normal first confi rmed, currently in third trimester Z34.03 and 37 weeks gestation of Z3A.37 [place] [address] [id number] [address] [place] [phone] 06 Dec, 2015 Normal first confi rmed, currently in third trimester Z34.03 and 36 weeks gestation of Z3A.36 [place] [address] [id number] [address] [place] [phone] Nov, [place] [address] [facility] [id number] [address] [place] [phone] Nov, Normal first confi rmed, currently in third trimester Z34.03 and 33 weeks gestation of Z3A.[address] [address] Nov, Normal first confi rmed, currently in third trimester Z34.03 ; 31 weeks gestation of Z3A.31 and Encounter for immunization Z23 [address] [address] October, Normal first confi rmed, second trimester Z34.02 and 26 weeks gestation of Z3A.[address] [address] Sep, Normal first confi rmed, second trimester Z34.02 ; Chlamydia infection affecting in second trimester, antepartum O98.312 and 22 weeks gestation of Z3A.[address] [address] Aug, 18 weeks gestation of pregna ncy Z3A.18 ; Normal first confirmed, second trimester Z34.02 and Chlamydia infection affecting in second trimester, antepartum O98.312 [place] [id number] [address] [place] [address] Jul, [place] [id number] [place] [phone] Jul, [place] [address] [address] [place] [id number] [address] [place] [phone] 08 Jul, 2015 care, first pregnan cy in second trimester Z34.02 ; with 14 completed weeks gestation Z3A.14 ; Vaginal discharge N89.8 ; Screening for malignant neoplasm of cervix Z12.4 and Routine screening for STI (sexually transmitted infection) Z11.3 [place] [address] [address] [place] [id number] [address] [place] [phone] Jun, Normal , first Z34. 00 ; Encounter for immunization Z23 ; care, first in first trimester Z34.01 and with 10 completed weeks gestation Z3A.10 [facility] [address] [facility] [id number] [address] [place] [address] May, confirmed by posit torsten urine test Z32.01 IMMUNIZATIONS No Known Immunizations SOCIAL HISTORY Never Assessed REASON FOR VISIT Eye Exam PLAN OF CARE VITAL SIGNS MEDICATIONS Unknown Medications RESULTS No Results PROCEDURES No Known procedures INSTRUCTIONS MEDICATIONS ADMINISTERED No Known Medications
--- OUTSIDE RECORDS SUMMARY | 2019-09-03 12:28 | XMS REPORT ---
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 (ASC-US) R87.610 Active 582012372 ALLERGIES No Information ENCOUNTERS Encounter Location Date Diagnosis [place] [address] [place] [id number] [address] [place] [phone] Jan, [place] [address] [place] [id number] [address] [place] [phone] Dec, care in second trim karyn Z34.92 and 17 weeks gestation of Z3A.17 [place] [id number] [place] [id number] Nov, care, subsequent pr egnancy in first trimester Z34.81 and 13 weeks gestation of Z3A.13 [place] [address] [place] [id number] [place] [phone] October, [place] [address] [facility] [id number] [address] [place] [phone] October, Normal in multigra janet Z34.80 ; care in first trimester Z34.91 and 11 weeks gestation of Z3A.11 [place] [address] [facility] [id number] [address] [place] [phone] Sep, [place] [address] [place] [id number] [place] [phone] Sep, Positive test Z32. 01 [facility] [address] [facility] [id number] [address] [place] [phone] Mar, [facility] [address] [facility] [id number] [address] [place] [phone] Feb, Threatened miscarriage O20.0 and Homeless Z59.0 [facility] [address] [place] [id number] [place] [phone] Feb, Threatened miscarriage O20.0 [facility] [address] [facility] [id number] [address] [place] [address] Jan, Threatened miscarriage O20.0 [facility] [address] [facility] [id number] [address] [place] [phone] Jan, Encounter for test , result unknown Z32.00 [facility] [address] [place] [id number] [place] [phone] Jan, [facility] [address] [facility] [id number] [address] [place] [phone] Jan, [facility] [address] [place] [id number] [place] [phone] Jan, [facility] [address] [place] [id number] [place] [phone] Dec, [facility] [address] [place] [id number] [place] [phone] Dec, [facility] [address] [facility] [id number] [address] [place] [phone] Nov, [facility] [address] [place] [id number] [place] [phone] Nov, Chalazion left upper eyelid H00.14 [facility] [address] [facility] [id number] [address] [place] [phone] 06 Feb, 2016 Routine follow-up Z39.2 ; Cervical high risk human papillomavirus (HPV) DNA test positive R87.810 and Atyp squam cell of undet signfc cyto smr crvx (ASC-US) R87.610 [place] [address] [place] [id number] [place] [phone] Dec, Normal in third tr imester Z34.93 and 39 weeks gestation of Z3A.39 [place] [address] [place] [id number] [place] [phone] Dec, Normal first confi rmed, currently in third trimester Z34.03 and 38 weeks gestation of Z3A.38 [place] [address] [place] [id number] [place] [phone] Dec, Normal first confi rmed, currently in third trimester Z34.03 and 37 weeks gestation of Z3A.37 [place] [address] [place] [id number] [place] [phone] Dec, Normal first confi rmed, currently in third trimester Z34.03 and 36 weeks gestation of Z3A.36 [place] [address] [place] [id number] [place] [phone] Nov, [place] [address] [place] [id number] [place] [phone] Nov, Normal first confi rmed, currently in third trimester Z34.03 and 33 weeks gestation of Z3A.33 [place] [address] [place] [id number] [place] [phone] Nov, Normal first confi rmed, currently in third trimester Z34.03 ; 31 weeks gestation of Z3A.31 and Encounter for immunization Z23 [place] [address] [place] [id number] [place] [phone] October, Normal first confi rmed, second trimester Z34.02 and 26 weeks gestation of Z3A.26 [place] [address] [place] [id number] [place] [phone] Sep, Normal first confi rmed, second trimester Z34.02 ; Chlamydia infection affecting in second trimester, antepartum O98.312 and 22 weeks gestation of Z3A.22 [place] [address] [facility] [id number] [address] [place] [phone] Aug, 18 weeks gestation of pregna ncy Z3A.18 ; Normal first confirmed, second trimester Z34.02 and Chlamydia infection affecting in second trimester, antepartum O98.312 [place] [address] [facility] [id number] [address] [place] [phone] Jul, [place] [address] [facility] [id number] [address] [place] [phone] Jul, [place] [address] [facility] [id number] [address] [place] [phone] 08 Jul, 2015 care, first pregnan cy in second trimester Z34.02 ; with 14 completed weeks gestation Z3A.14 ; Vaginal discharge N89.8 ; Screening for malignant neoplasm of cervix Z12.4 and Routine screening for STI (sexually transmitted infection) Z11.3 [place] [address] [facility] [id number] [address] [place] [id number] 11 Jun, 2015 Normal , first Z34. 00 ; Encounter for immunization Z23 ; care, first in first trimester Z34.01 and with 10 completed weeks gestation Z3A.10 [place] [address] [facility] [id number] [address] [place] [phone] May, confirmed by posit torsten urine test Z32.01 IMMUNIZATIONS No Known Immunizations SOCIAL HISTORY Never Assessed REASON FOR VISIT Lab (walk-in), urine PLAN OF CARE VITAL SIGNS MEDICATIONS Unknown Medications RESULTS Name Result Date Reference Range TEST, URINE (IN HOUSE) 2017-10-12 RESULTS POSITIVE Lot # [id number] Control + Exp date 24 January 2019 PROCEDURES Procedure Date Ordered Result Body Site URINE TEST October 12, 2017 INSTRUCTIONS MEDICATIONS ADMINISTERED No Known Medications MEDICAL (GENERAL) HISTORY Type Description Date Hospitalization History child
--- OUTSIDE RECORDS SUMMARY | 2019-09-03 12:28 | XMS REPORT ---
Author Author Ingrid CONTRERAS [facility] Address [address] [place] [address] Care Team Providers Care Lithographic Camera Operator Name Role Phone MYNOR CONTRERAS Unavailable PROBLEMS Type Condition ICD9-CM Code BDK55-ZM Code Onset Dates Condition S tatus SNOMED Code Problem Cervical high risk human papillomavirus (HPV) DN A test positive R87.810 Active 396381594 Problem Atyp squam cell of undet signfc cyto smr crvx (ASC-US) R87.610 Active 330450977 ALLERGIES No Information ENCOUNTERS Encounter Location Date Diagnosis [facility] [place] [address] [place] [id number] [place] [phone] Apr, [facility] [place] [address] [place] [id number] [place] [phone] Apr, [place] [address] [place] [id number] [place] [phone] Apr, [facility] [place] [address] [facility] [id number] [address] [place] [phone] Apr, [place] [address] [place] [id number] [place] [phone] Mar, [facility] [place] [address] [place] [id number] [place] [phone] Mar, [facility] [place] [address] [place] [id number] [place] [phone] Feb, Second trimester Z 34.92 and 26 weeks gestation of Z3A.26 [facility] [place] [address] [facility] [id number] [address] [place] [phone] Jan, 21 weeks gestation of pregna ncy Z3A.21 and Second trimester Z34.92 [facility] [place] [address] [id number] [address] [place] [phone] 11 Dec, 2017 care in second trim karyn Z34.92 and 17 weeks gestation of Z3A.17 [facility] [place] [address] [facility] [id number] [address] [place] [address] Nov, care, subsequent pr egnancy in first trimester Z34.81 and 13 weeks gestation of Z3A.13 [place] [address] [facility] [id number] [address] [place] [phone] October, [place] [address] [facility] [id number] [address] [place] [address] October, Normal in multigra janet Z34.80 ; care in first trimester Z34.91 and 11 weeks gestation of Z3A.11 [place] [address] [facility] [id number] [address] [place] [phone] Sep, [place] [address] [place] [id number] [place] [phone] Sep, Positive test Z32. 01 [place] [address] [facility] [id number] [address] [place] [phone] Mar, [place] [address] [facility] [id number] [address] [place] [phone] Feb, Threatened miscarriage O20.0 and Homeless Z59.0 [place] [address] [facility] [id number] [address] [place] [phone] Feb, Threatened miscarriage O20.0 [place] [address] [facility] [id number] [address] [place] [phone] Jan, Threatened miscarriage O20.0 [place] [address] [place] [id number] [place] [phone] Jan, Encounter for test , result unknown Z32.00 [place] [address] [place] [id number] [place] [phone] Jan, [facility] [place] [address] [id number] [address] [place] [phone] Jan, [facility] [place] [address] [id number] [address] [place] [phone] Jan, [facility] [place] [address] [id number] [address] [place] [phone] Dec, [facility] [place] [address] [id number] [address] [place] [phone] Dec, [facility] [place] [address] [id number] [address] [place] [phone] Nov, [facility] [place] [address] [id number] [address] [place] [phone] Nov, Chalazion left upper eyelid H00.14 [place] [address] [facility] [id number] [address] [place] [phone] 06 Feb, 2016 Routine follow-up Z39.2 ; Cervical high risk human papillomavirus (HPV) DNA test positive R87.810 and Atyp squam cell of undet signfc cyto smr crvx (ASC-US) R87.610 [place] [address] [facility] [id number] [address] [place] [phone] 27 Dec, 2015 Normal in third tr imester Z34.93 and 39 weeks gestation of Z3A.39 [place] [address] [facility] [id number] [address] [place] [phone] 20 Dec, 2015 Normal first confi rmed, currently in third trimester Z34.03 and 38 weeks gestation of Z3A.38 [place] [address] [facility] [id number] [address] [place] [phone] 13 Dec, 2015 Normal first confi rmed, currently in third trimester Z34.03 and 37 weeks gestation of Z3A.37 [place] [address] [facility] [id number] [address] [place] [phone] Dec, Normal first confi rmed, currently in third trimester Z34.03 and 36 weeks gestation of Z3A.36 [place] [address] [facility] [id number] [address] [place] [address] Nov, [place] [address] [facility] [id number] [address] [place] [address] Nov, Normal first confi rmed, currently in third trimester Z34.03 and 33 weeks gestation of Z3A.33 [place] [address] [place] [id number] [place] [phone] Nov, Normal first confi rmed, currently in third trimester Z34.03 ; 31 weeks gestation of Z3A.31 and Encounter for immunization Z23 [place] [address] [place] [id number] [place] [phone] October, Normal first confi rmed, second trimester Z34.02 and 26 weeks gestation of Z3A.26 [place] [address] [place] [id number] [address] [place] [address] Sep, Normal first confi rmed, second trimester Z34.02 ; Chlamydia infection affecting in second trimester, antepartum O98.312 and 22 weeks gestation of Z3A.22 [place] [address] [place] [id number] [place] [phone] Aug, 18 weeks gestation of pregna ncy Z3A.18 ; Normal first confirmed, second trimester Z34.02 and Chlamydia infection affecting in second trimester, antepartum O98.312 [place] [address] [place] [id number] [place] [phone] Jul, [place] [address] [place] [id number] [place] [phone] Jul, [place] [address] [place] [id number] [place] [phone] 08 Jul, 2015 care, first pregnan cy in second trimester Z34.02 ; with 14 completed weeks gestation Z3A.14 ; Vaginal discharge N89.8 ; Screening for malignant neoplasm of cervix Z12.4 and Routine screening for STI (sexually transmitted infection) Z11.3 [facility] [place] [address] [facility] [id number] [address] [address] 11 Jun, 2015 Normal , first Z34. 00 ; Encounter for immunization Z23 ; care, first in first trimester Z34.01 and with 10 completed weeks gestation Z3A.10 [facility] [place] [address] [facility] [id number] [place] [address] 30 May, 2015 confirmed by posit torsten urine test Z32.01 IMMUNIZATIONS No Known Immunizations SOCIAL HISTORY Never Assessed REASON FOR VISIT OB 4wk f/u -- iris mcmahon PLAN OF CARE Activity Details Follow Up 4 Weeks Reason: VITAL SIGNS Height 57.5 in 2018-03-07 Weight 156.0 lbs 2018-03-07 Temperature 98.0 degrees Fahrenheit 2018-03-07 BMI 33.174 kg/m2 2018-03-07 Blood pressure systolic 110 mmHg 2018-03-07 Blood pressure diastolic 70 mmHg 2018-03-07 MEDICATIONS Medication Instructions Dosage Frequency Start Date End Date Duration S tatus Vitamins - (Dis) Active RESULTS No Results PROCEDURES Procedure Date Ordered Result Body Site COMPLETE CBC W/AUTO DIFF WBC Mar 07, 2018 GLUCOSE TEST Mar 07, 2018 URINE-NO MICRO Mar 07, 2018 VENIPUNCT, ROUTINE* Mar 07, 2018 INSTRUCTIONS MEDICATIONS ADMINISTERED No Known Medications MEDICAL (GENERAL) HISTORY Type Description Date Hospitalization History child
--- OUTSIDE RECORDS SUMMARY | 2019-09-03 12:28 | XMS REPORT ---
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 Info Not Available Non Drug Allergy Problems Problem Type Condition Code Onset Dates Condition Statu s Assessment Encounter for immunization Z23 A ctive Assessment care, first in first trimester Z34. 01 Active Assessment Normal , first Z34.00 Acti ve Assessment with 10 completed weeks gestation Z3A.10 Active Medications No Known Medications Procedures Procedure Coding System Code Date URINALYSIS, AUTO, W/O SCOPE CPT-4 98329 Jul 07, 2015 BLOOD TYPING, ABO CPT-4 59402 Jul 07, 2015 Office Visit, New Pt., Level 3 CPT-4 44183 J an 2015 RUBELLA ANTIBODY CPT-4 03378 Jul 07, 2015 COMPLETE CBC W/AUTO DIFF WBC CPT-4 88348 Jul 07, 2015 BLOOD TYPING, RH (D) CPT-4 41186 Jul 07 6 URINE CULTURE/COLONY COUNT CPT-4 67696 Jun 272015 VENIPUNCT, ROUTINE* CPT-4 97337 Jul 07, 2015 FLUARIX QUAD (3 & UP)-GSK-2015 CPT-4 48447 J an 2015 ASSAY THYROID STIM HORMONE CPT-4 33213 Jun 272015 SINGLE IMMUNIZATION ADMIN CPT-4 26854 Jun No Charge CPT-4 12887 Jul 07, 2015 RBC ANTIBODY SCREEN CPT-4 54901 Jul 07, 2015 Vital Signs Date/Time: Jul 07, 2015 Temperature 97.0 F Weight 123.1 lbs Height 57.5 in BMI 26.177 Index Blood Pressure Diastolic 80 mmHg Blood Pressure Systolic 130 mmHg Cardiac Monitoring Heart Rate 72 bpm Results Name Result Date Reference Range Unit Abnormali ty Flag UA LONG DIP (IN HOUSE) ----AYESHA trace [id number] ----NIT neg [id number] ----SG 1.010 20150707 ----KET neg [id number] ----FRANCO neg [id number] ----GLU neg [id number] ----Odor no 20150707 ----pH 7.0 20150707 ----BLO neg [id number] ----URO 0.2 20150707 ----Protein neg [id number] ----Lot # [id number] ----Exp date [id number] ----Clarity clear [id number] ----Color yellow [id number] ROUTINE VENIPUNCTURE Immunizations Vaccine Administration Date FLUARIX QUAD (3 & UP)-GSK-2014Jul 07, 2015 Summary Purpose eClinicalWorks Submission
--- OUTSIDE RECORDS SUMMARY | 2019-09-03 12:28 | XMS REPORT ---
Author Author Ingrid ESTEBAN [facility] Address [address] [place] [address] Care Team Providers Care Co Founder And Ceo Name Role Phone EULALIA KUNAL Unavailable PROBLEMS Type Condition ICD9-CM Code IVF69-VB Code Onset Dates Condition S tatus SNOMED Code Problem Cervical high risk human papillomavirus (HPV) DN A test positive R87.810 Active 609871379 Problem Atyp squam cell of undet signfc cyto smr crvx (ASC-US) R87.610 Active 138884277 ALLERGIES No Known Allergies ENCOUNTERS Encounter Location Date Diagnosis [place] [id number] [address] [place] [phone] Jan, [place] [id number] [address] [place] [phone] Dec, care in second trim karyn Z34.92 and 17 weeks gestation of Z3A.17 [place] [id number] [address] [place] [phone] Nov, care, subsequent pr egnancy in first trimester Z34.81 and 13 weeks gestation of Z3A.13 [place] [address] [address] [place] [id number] [address] [place] [phone] October, [address] [id number] [address] [place] [phone] October, Normal in multigra janet Z34.80 ; care in first trimester Z34.91 and 11 weeks gestation of Z3A.11 [place] [address] [facility] [id number] [address] [place] [phone] Sep, [place] [address] [address] [place] [id number] [address] [place] [phone] Sep, Positive test Z32. 01 [facility] [place] [address] [facility] [id number] [address] [place] [phone] Mar, [facility] [place] [address] [facility] [id number] [address] [place] [phone] Feb, Threatened miscarriage O20.0 and Homeless Z59.0 [facility] [place] [address] [facility] [id number] [address] [place] [phone] Feb, Threatened miscarriage O20.0 [facility] [place] [address] [facility] [id number] [address] [place] [phone] Jan, Threatened miscarriage O20.0 [facility] [place] [address] [facility] [id number] [address] [place] [phone] Jan, Encounter for test , result unknown Z32.00 [facility] [place] [address] [place] [id number] [address] [place] [phone] Jan, [facility] [place] [address] [facility] [id number] [address] [place] [phone] Jan, [facility] [place] [address] [place] [id number] [address] [place] [phone] Jan, [facility] [place] [address] [facility] [id number] [address] [place] [phone] Dec, [facility] [place] [address] [place] [id number] [address] [place] [phone] Dec, [facility] [place] [address] [facility] [id number] [address] [place] [phone] Nov, [facility] [place] [address] [facility] [id number] [address] [place] [phone] Nov, Chalazion left upper eyelid H00.14 [facility] [place] [address] [facility] [id number] [address] [place] [phone] 06 Feb, 2016 Routine follow-up Z39.2 ; Cervical high risk human papillomavirus (HPV) DNA test positive R87.810 and Atyp squam cell of undet signfc cyto smr crvx (ASC-US) R87.610 [place] [address] [facility] [id number] [address] [place] [phone] Dec, Normal in third tr imester Z34.93 and 39 weeks gestation of Z3A.39 [place] [address] [place] [id number] [address] [place] [phone] Dec, Normal first confi rmed, currently in third trimester Z34.03 and 38 weeks gestation of Z3A.38 [place] [address] [place] [id number] [address] [place] [phone] Dec, Normal first confi rmed, currently in third trimester Z34.03 and 37 weeks gestation of Z3A.37 [place] [address] [place] [id number] [address] [place] [phone] Dec, Normal first confi rmed, currently in third trimester Z34.03 and 36 weeks gestation of Z3A.36 [place] [address] [facility] [id number] [address] [place] [phone] Nov, [place] [address] [place] [id number] [address] [place] [phone] Nov, Normal first confi rmed, currently in third trimester Z34.03 and 33 weeks gestation of Z3A.33 [place] [address] [place] [id number] [address] [place] [phone] Nov, Normal first confi rmed, currently in third trimester Z34.03 ; 31 weeks gestation of Z3A.31 and Encounter for immunization Z23 [place] [address] [place] [id number] [address] [place] [phone] October, Normal first confi rmed, second trimester Z34.02 and 26 weeks gestation of Z3A.26 [place] [address] [place] [id number] [address] [place] [phone] Sep, Normal first confi rmed, second trimester Z34.02 ; Chlamydia infection affecting in second trimester, antepartum O98.312 and 22 weeks gestation of Z3A.22 [place] [address] [facility] [id number] [address] [place] [phone] Aug, 18 weeks gestation of pregna ncy Z3A.18 ; Normal first confirmed, second trimester Z34.02 and Chlamydia infection affecting in second trimester, antepartum O98.312 [place] [address] [facility] [id number] [address] [place] [address] Jul, [place] [address] [facility] [id number] [address] [place] [phone] Jul, [place] [address] [facility] [id number] [address] [place] [phone] Jul, care, first pregnan cy in second trimester Z34.02 ; with 14 completed weeks gestation Z3A.14 ; Vaginal discharge N89.8 ; Screening for malignant neoplasm of cervix Z12.4 and Routine screening for STI (sexually transmitted infection) Z11.3 [place] [address] [facility] [id number] [address] [place] [phone] Jun, Normal , first Z34. 00 ; Encounter for immunization Z23 ; care, first in first trimester Z34.01 and with 10 completed weeks gestation Z3A.10 [place] [address] [place] [id number] [address] [place] [phone] May, confirmed by posit torsten urine test Z32.01 IMMUNIZATIONS No Known Immunizations SOCIAL HISTORY Never Assessed REASON FOR VISIT OB Flowsheet History -- iris mcmahon PLAN OF CARE VITAL SIGNS MEDICATIONS Medication Instructions Dosage Frequency Start Date End Date Duration S tatus Vitamin 27-0.8 MG Jul, Not-Taking Vitamins - (Dis) Active RESULTS No Results PROCEDURES No Known procedures INSTRUCTIONS MEDICATIONS ADMINISTERED No Known Medications MEDICAL (GENERAL) HISTORY Type Description Date Hospitalization History child
--- OUTSIDE RECORDS SUMMARY | 2019-09-03 12:28 | XMS REPORT ---
Author Author Ingrid CONTRERAS [facility] Address [address] [place] [address] Care Team Providers Care Financial Aid Director Name Role Phone MYNOR CONTRERAS Unavailable PROBLEMS Type Condition ICD9-CM Code [id number] Code Onset Dates Condition S tatus SNOMED Code Problem Cervical high risk human papillomavirus (HPV) DN A test positive R87.810 Active 698491818 Problem Atyp squam cell of undet signfc cyto smr crvx (ASC-US) R87.610 Active 672060008 ALLERGIES No Information ENCOUNTERS Encounter Location Date Diagnosis [place] [id number] [place] [phone] Apr, [facility] [address] [place] [id number] [address] [place] [phone] Apr, [place] [address] [address] Apr, [place] [address] [place] [id number] [address] [place] [phone] Apr, [place] [address] [place] [id number] [address] [place] [phone] Mar, care in third trime ster Z34.93 and 32 weeks gestation of Z3A.32 [place] [id number] [facility] [id number] [address] [place] [phone] 10 Mar, 2018 30 weeks gestation of pregna ncy Z3A.30 ; Third trimester Z34.93 and Encounter for immunization Z23 [place] [address] [facility] [id number] [address] [place] [phone] Feb, Second trimester Z 34.92 and 26 weeks gestation of Z3A.26 [place] [address] [facility] [id number] [address] [place] [phone] 09 Jan, 2018 21 weeks gestation of pregna ncy Z3A.21 and Second trimester Z34.92 [place] [address] [facility] [id number] [address] [place] [phone] Dec, care in second trim karyn Z34.92 and 17 weeks gestation of Z3A.17 [place] [address] [facility] [id number] [address] [place] [phone] Nov, care, subsequent pr egnancy in first trimester Z34.81 and 13 weeks gestation of Z3A.13 [place] [address] [facility] [id number] [address] [place] [phone] October, [place] [address] [facility] [id number] [address] [place] [phone] October, Normal in multigra janet Z34.80 ; care in first trimester Z34.91 and 11 weeks gestation of Z3A.11 [place] [address] [facility] [id number] [address] [place] [phone] Sep, [place] [address] [facility] [id number] [address] [place] [phone] Sep, Positive test Z32. 01 [place] [address] [facility] [id number] [address] [place] [phone] Mar, [place] [address] [place] [id number] [address] [place] [phone] Feb, Threatened miscarriage O20.0 and Homeless Z59.0 [place] [address] [facility] [id number] [address] [place] [phone] Feb, Threatened miscarriage O20.0 [place] [address] [facility] [id number] [address] [place] [phone] Jan, Threatened miscarriage O20.0 [place] [address] [facility] [id number] [address] [place] [phone] Jan, Encounter for test , result unknown Z32.00 [facility] [address] [id number] [address] [place] [phone] Jan, [facility] [address] [id number] [address] [place] [phone] Jan, [facility] [address] [id number] [address] [place] [phone] Jan, [facility] [address] [id number] [address] [place] [phone] Dec, [facility] [address] [id number] [address] [place] [phone] Dec, [place] [address] [id number] [address] [place] [phone] Nov, [place] [address] [id number] [address] [place] [phone] Nov, Chalazion left upper eyelid H00.14 [facility] [address] [id number] [address] [place] [phone] 06 Feb, 2016 Routine follow-up Z39.2 ; Cervical high risk human papillomavirus (HPV) DNA test positive R87.810 and Atyp squam cell of undet signfc cyto smr crvx (ASC-US) R87.610 [place] [address] [facility] [id number] [address] [place] [phone] 27 Dec, 2015 Normal in third tr imester Z34.93 and 39 weeks gestation of Z3A.39 [facility] [address] [facility] [id number] [address] [place] [phone] 20 Dec, 2015 Normal first confi rmed, currently in third trimester Z34.03 and 38 weeks gestation of Z3A.38 [facility] [address] [facility] [id number] [address] [place] [phone] 13 Dec, 2015 Normal first confi rmed, currently in third trimester Z34.03 and 37 weeks gestation of Z3A.37 [place] [address] [facility] [id number] [address] [place] [phone] Dec, Normal first confi rmed, currently in third trimester Z34.03 and 36 weeks gestation of Z3A.36 [place] [address] [id number] [address] [place] [phone] Nov, [place] [address] [facility] [id number] [address] [place] [phone] Nov, Normal first confi rmed, currently in third trimester Z34.03 and 33 weeks gestation of Z3A.33 [place] [address] [facility] [id number] [address] [place] [phone] Nov, Normal first confi rmed, currently in third trimester Z34.03 ; 31 weeks gestation of Z3A.31 and Encounter for immunization Z23 [place] [address] [facility] [id number] [address] [place] [phone] October, Normal first confi rmed, second trimester Z34.02 and 26 weeks gestation of Z3A.26 [place] [address] [facility] [id number] [address] [place] [phone] Sep, Normal first confi rmed, second trimester Z34.02 ; Chlamydia infection affecting in second trimester, antepartum O98.312 and 22 weeks gestation of Z3A.22 [place] [address] [facility] [id number] [address] [place] [phone] Aug, 18 weeks gestation of pregna ncy Z3A.18 ; Normal first confirmed, second trimester Z34.02 and Chlamydia infection affecting in second trimester, antepartum O98.312 [place] [address] [facility] [id number] [address] [place] [phone] Jul, [place] [address] [facility] [id number] [address] [place] [phone] Jul, [place] [address] [facility] [id number] [address] [place] [phone] 08 Jul, 2015 care, first pregnan cy in second trimester Z34.02 ; with 14 completed weeks gestation Z3A.14 ; Vaginal discharge N89.8 ; Screening for malignant neoplasm of cervix Z12.4 and Routine screening for STI (sexually transmitted infection) Z11.3 [facility] [address] [facility] [id number] [address] [place] [address] 11 Jun, 2015 Normal , first Z34. 00 ; Encounter for immunization Z23 ; care, first in first trimester Z34.01 and with 10 completed weeks gestation Z3A.10 [facility] [address] [facility] [id number] [address] [address] 30 May, 2015 confirmed by posit torsten urine test Z32.01 IMMUNIZATIONS No Known Immunizations SOCIAL HISTORY Never Assessed REASON FOR VISIT OB 2wk f/u -- iris mcmahon PLAN OF CARE Activity Details Follow Up 4 Weeks Reason: VITAL SIGNS Height 57.5 in 2018-04-20 Weight 162.8 lbs 2018-04-20 Temperature 98.0 degrees Fahrenheit 2018-04-20 Heart Rate 70 bpm 2018-04-20 Respiratory Rate 20 2018-04-20 BMI 34.62 kg/m2 2018-04-20 Blood pressure systolic 120 mmHg 2018-04-20 Blood pressure diastolic 68 mmHg 2018-04-20 MEDICATIONS Medication Instructions Dosage Frequency Start Date End Date Duration S tatus Vitamins - (Dis) Active RESULTS Name Result Date Reference Range UA OB DIP (IN HOUSE) 2018-04-20 Glucose negative Protein trace PROCEDURES Procedure Date Ordered Result Body Site URINE-NO MICRO Apr 20, 2018 INSTRUCTIONS MEDICATIONS ADMINISTERED No Known Medications MEDICAL (GENERAL) HISTORY Type Description Date Hospitalization History child
--- OUTSIDE RECORDS SUMMARY | 2019-09-03 12:28 | XMS REPORT ---
Author Author Ingrid NESS [facility] Address [address] [place] [address] Care Team Providers Care Mica Inspector Name Role Phone GROVERJENNIFER HERNANDEZY Unavailable PROBLEMS Type Condition ICD9-CM Code KAX32-NT Code Onset Dates Condition S tatus SNOMED Code Problem Cervical high risk human papillomavirus (HPV) DN A test positive R87.810 Active 166853198 Problem Atyp squam cell of undet signfc cyto smr crvx (ASC-US) R87.610 Active 936831193 ALLERGIES No Information ENCOUNTERS Encounter Location Date Diagnosis [place] [address] [address] Sep, [place] [address] [address] Sep, Positive test Z32. 01 [place] [address] [address] Mar, [place] [address] [address] [place] [id number] [address] [place] [phone] Feb, Threatened miscarriage O20.0 and Homeless Z59.0 [place] [address] [address] [place] [id number] [address] [place] [address] Feb, Threatened miscarriage O20.0 [place] [address] [address] [place] [id number] [address] [place] [phone] Jan, Threatened miscarriage O20.0 [place] [address] [address] [place] [id number] [address] [place] [address] Jan, Encounter for test , result unknown Z32.00 [place] [address] [phone] Jan, [facility] [address] [id number] [address] [place] [phone] Jan, [facility] [address] [id number] [address] [place] [phone] Jan, [facility] [address] [id number] [address] [place] [phone] Dec, [facility] [address] [id number] [address] [place] [phone] Dec, [facility] [address] [id number] [address] [place] [address] Nov, [place] [address] [address] [facility] [id number] [address] [place] [address] Nov, Chalazion left upper eyelid H00.14 [place] [address] [address] [facility] [id number] [address] [place] [phone] 06 Feb, 2016 Routine follow-up Z39.2 ; Cervical high risk human papillomavirus (HPV) DNA test positive R87.810 and Atyp squam cell of undet signfc cyto smr crvx (ASC-US) R87.610 [place] [id number] [facility] [id number] [address] [place] [address] Dec, Normal in third tr imester Z34.93 and 39 weeks gestation of Z3A.39 [place] [id number] [facility] [id number] [address] [place] [address] Dec, Normal first confi rmed, currently in third trimester Z34.03 and 38 weeks gestation of Z3A.38 [facility] [address] [facility] [id number] [address] [place] [address] 13 Dec, 2015 Normal first confi rmed, currently in third trimester Z34.03 and 37 weeks gestation of Z3A.37 [facility] [address] [facility] [id number] [address] [place] [address] Dec, Normal first confi rmed, currently in third trimester Z34.03 and 36 weeks gestation of Z3A.36 [place] [address] [facility] [id number] [address] [place] [phone] Nov, [place] [address] [facility] [id number] [address] [place] [address] Nov, Normal first confi rmed, currently in third trimester Z34.03 and 33 weeks gestation of Z3A.33 [place] [address] [facility] [id number] [address] [place] [address] Nov, Normal first confi rmed, currently in third trimester Z34.03 ; 31 weeks gestation of Z3A.31 and Encounter for immunization Z23 [place] [address] [facility] [id number] [address] [place] [address] October, Normal first confi rmed, second trimester Z34.02 and 26 weeks gestation of Z3A.26 [place] [address] [address] [place] [id number] [address] [place] [address] Sep, Normal first confi rmed, second trimester Z34.02 ; Chlamydia infection affecting in second trimester, antepartum O98.312 and 22 weeks gestation of Z3A.22 [place] [address] [facility] [id number] [address] [place] [address] Aug, 18 weeks gestation of pregna ncy Z3A.18 ; Normal first confirmed, second trimester Z34.02 and Chlamydia infection affecting in second trimester, antepartum O98.312 [place] [address] [facility] [id number] [address] [place] [phone] Jul, [place] [address] [facility] [id number] [address] [place] [address] Jul, [place] [address] [place] [id number] [address] [place] [phone] Jul, care, first pregnan cy in second trimester Z34.02 ; with 14 completed weeks gestation Z3A.14 ; Vaginal discharge N89.8 ; Screening for malignant neoplasm of cervix Z12.4 and Routine screening for STI (sexually transmitted infection) Z11.3 [facility] [address] [facility] [id number] [address] [place] [phone] 11 Jun, 2015 Encounter for immunization Z 23 ; Normal , first Z34.00 ; care, first in first trimester Z34.01 and with 10 completed weeks gestation Z3A.10 [place] [address] [facility] [id number] [address] [place] [phone] 30 May, 2015 confirmed by posit tortsen urine test Z32.01 IMMUNIZATIONS No Known Immunizations SOCIAL HISTORY Never Assessed REASON FOR VISIT Triage PLAN OF CARE VITAL SIGNS MEDICATIONS Unknown Medications RESULTS No Results PROCEDURES No Known procedures INSTRUCTIONS MEDICATIONS ADMINISTERED No Known Medications MEDICAL (GENERAL) HISTORY Type Description Date Hospitalization History child
--- OUTSIDE RECORDS SUMMARY | 2019-09-03 12:28 | XMS REPORT ---
Author Author Ingrid CONTRERAS [facility] Address [address] [place] [address] Care Team Providers Care Electrician'S Helper Name Role Phone MYNOR CONTRERAS Unavailable PROBLEMS Type Condition ICD9-CM Code [id number] Code Onset Dates Condition S tatus SNOMED Code Problem Cervical high risk human papillomavirus (HPV) DN A test positive R87.810 Active 673921251 Problem Atyp squam cell of undet signfc cyto smr crvx (ASC-US) R87.610 Active 774642329 ALLERGIES No Information ENCOUNTERS Encounter Location Date Diagnosis [facility] [address] [id number] [address] [place] [phone] Apr, [facility] [address] [id number] [address] [place] [phone] Apr, [place] [address] [place] [id number] [address] [place] [phone] Apr, [facility] [address] [facility] [id number] [address] [place] [phone] Apr, [place] [id number] [place] [id number] [address] [place] [phone] Mar, [facility] [address] [id number] [address] [place] [phone] Mar, [facility] [address] [id number] [address] [place] [phone] Feb, Second trimester Z 34.92 and 26 weeks gestation of Z3A.26 [facility] [address] [facility] [id number] [address] [place] [phone] Jan, 21 weeks gestation of pregna ncy Z3A.21 and Second trimester Z34.92 [facility] [address] [id number] [address] [place] [phone] 11 Dec, 2017 care in second trim karyn Z34.92 and 17 weeks gestation of Z3A.17 [facility] [address] [facility] [id number] [address] [place] [phone] Nov, care, subsequent pr egnancy in first trimester Z34.81 and 13 weeks gestation of Z3A.13 [place] [address] [facility] [id number] [address] [place] [phone] October, [place] [address] [facility] [id number] [address] [place] [phone] October, Normal in multigra janet Z34.80 ; care in first trimester Z34.91 and 11 weeks gestation of Z3A.11 [place] [address] [facility] [id number] [address] [place] [phone] Sep, [place] [address] [place] [id number] [place] [phone] Sep, Positive test Z32. 01 [place] [address] [facility] [id number] [address] [place] [phone] Mar, [place] [address] [facility] [id number] [address] [place] [phone] Feb, Threatened miscarriage O20.0 and Homeless Z59.0 [place] [address] [facility] [id number] [address] [place] [phone] Feb, Threatened miscarriage O20.0 [place] [address] [facility] [id number] [address] [place] [phone] Jan, Threatened miscarriage O20.0 [place] [address] [place] [id number] [place] [phone] Jan, Encounter for test , result unknown Z32.00 [place] [address] [place] [id number] [place] [phone] Jan, [facility] [address] [id number] [address] [place] [phone] Jan, [facility] [address] [id number] [address] [place] [phone] Jan, [facility] [address] [id number] [address] [place] [phone] Dec, [facility] [address] [id number] [address] [place] [phone] Dec, [facility] [address] [id number] [address] [place] [phone] Nov, [facility] [address] [id number] [address] [place] [phone] Nov, Chalazion left upper eyelid H00.14 [place] [address] [facility] [id number] [address] [place] [phone] 06 Feb, 2016 Routine follow-up Z39.2 ; Cervical high risk human papillomavirus (HPV) DNA test positive R87.810 and Atyp squam cell of undet signfc cyto smr crvx (ASC-US) R87.610 [place] [address] [facility] [id number] [address] [place] [phone] 27 Dec, 2015 Normal in third tr imester Z34.93 and 39 weeks gestation of Z3A.39 [place] [address] [facility] [id number] [address] [place] [phone] 20 Dec, 2015 Normal first confi rmed, currently in third trimester Z34.03 and 38 weeks gestation of Z3A.38 [place] [address] [facility] [id number] [address] [place] [phone] 13 Dec, 2015 Normal first confi rmed, currently in third trimester Z34.03 and 37 weeks gestation of Z3A.37 [place] [address] [facility] [id number] [address] [place] [phone] Dec, Normal first confi rmed, currently in third trimester Z34.03 and 36 weeks gestation of Z3A.36 [place] [address] [facility] [id number] [address] [place] [phone] Nov, [place] [address] [facility] [id number] [address] [place] [phone] Nov, Normal first confi rmed, currently in third trimester Z34.03 and 33 weeks gestation of Z3A.33 [place] [address] [place] [id number] [place] [phone] Nov, Normal first confi rmed, currently in third trimester Z34.03 ; 31 weeks gestation of Z3A.31 and Encounter for immunization Z23 [place] [address] [place] [id number] [place] [phone] October, Normal first confi rmed, second trimester Z34.02 and 26 weeks gestation of Z3A.26 [place] [address] [place] [id number] [address] [place] [phone] Sep, Normal first confi rmed, second trimester Z34.02 ; Chlamydia infection affecting in second trimester, antepartum O98.312 and 22 weeks gestation of Z3A.22 [place] [address] [place] [id number] [place] [phone] Aug, 18 weeks gestation of pregna ncy Z3A.18 ; Normal first confirmed, second trimester Z34.02 and Chlamydia infection affecting in second trimester, antepartum O98.312 [place] [address] [place] [id number] [place] [phone] Jul, [place] [address] [place] [id number] [place] [phone] Jul, [place] [address] [place] [id number] [place] [phone] 08 Jul, 2015 care, first pregnan cy in second trimester Z34.02 ; with 14 completed weeks gestation Z3A.14 ; Vaginal discharge N89.8 ; Screening for malignant neoplasm of cervix Z12.4 and Routine screening for STI (sexually transmitted infection) Z11.3 [facility] [address] [facility] [id number] [address] [place] [address] 11 Jun, 2015 Normal , first Z34. 00 ; Encounter for immunization Z23 ; care, first in first trimester Z34.01 and with 10 completed weeks gestation Z3A.10 [facility] [address] [facility] [id number] [address] [place] [address] 30 May, 2015 confirmed by posit torsten urine test Z32.01 IMMUNIZATIONS No Known Immunizations SOCIAL HISTORY Never Assessed REASON FOR VISIT OB 4wk f/u -- iirs mcmahon PLAN OF CARE Activity Details Follow Up 4 Weeks Reason: VITAL SIGNS Height 57.5 in 2017-12-07 Weight 148.0 lbs 2017-12-07 Temperature 98.0 degrees Fahrenheit 2017-12-07 Heart Rate 78 bpm 2017-12-07 Respiratory Rate 18 2017-12-07 BMI 31.472 kg/m2 2017-12-07 Blood pressure systolic 116 mmHg 2017-12-07 Blood pressure diastolic 70 mmHg 2017-12-07 MEDICATIONS Medication Instructions Dosage Frequency Start Date End Date Duration S tatus Vitamins - (Dis) Active RESULTS Name Result Date Reference Range UA OB DIP (IN HOUSE) 2017-12-07 Glucose neg Protein trace PROCEDURES Procedure Date Ordered Result Body Site URINE-NO MICRO December 07, 2017 INSTRUCTIONS MEDICATIONS ADMINISTERED No Known Medications MEDICAL (GENERAL) HISTORY Type Description Date Hospitalization History child
--- OUTSIDE RECORDS SUMMARY | 2019-09-03 12:28 | XMS REPORT ---
Author Author Ingrid CONTRERAS [facility] Address [address] [place] [address] Care Team Providers Care Methods And Procedures Analyst Name Role Phone MYNOR CONTRERAS Unavailable PROBLEMS Type Condition ICD9-CM Code [id number] Code Onset Dates Condition S tatus SNOMED Code Problem Cervical high risk human papillomavirus (HPV) DN A test positive R87.810 Active 393589682 Problem Atyp squam cell of undet signfc cyto smr crvx (ASC-US) R87.610 Active 565408533 ALLERGIES No Known Allergies ENCOUNTERS Encounter Location Date Diagnosis [id number] [place] [phone] Feb, [place] [address] [place] [id number] [address] [place] [phone] 09 Jan, 2018 21 weeks gestation of pregna ncy Z3A.21 and Second trimester Z34.92 [place] [address] [place] [id number] [place] [address] Dec, care in second trim karyn Z34.92 and 17 weeks gestation of Z3A.17 [place] [address] [place] [id number] [place] [phone] 13 Nov, 2017 care, subsequent pr egnancy in first trimester Z34.81 and 13 weeks gestation of Z3A.13 [place] [address] [place] [id number] [address] [place] [address] October, [place] [address] [place] [id number] [place] [phone] October, Normal in multigra janet Z34.80 ; care in first trimester Z34.91 and 11 weeks gestation of Z3A.11 [place] [address] [id number] [address] [place] [phone] Sep, [facility] [address] [facility] [id number] [address] [place] [phone] Sep, Positive test Z32. 01 [facility] [address] [facility] [id number] [address] [place] [phone] Mar, [facility] [address] [facility] [id number] [address] [place] [phone] Feb, Threatened miscarriage O20.0 and Homeless Z59.0 [facility] [address] [facility] [id number] [place] [phone] Feb, Threatened miscarriage O20.0 [facility] [address] [facility] [id number] [address] [place] [phone] Jan, Threatened miscarriage O20.0 [facility] [address] [place] [id number] [place] [phone] Jan, Encounter for test , result unknown Z32.00 [facility] [address] [facility] [id number] [address] [place] [phone] Jan, [facility] [address] [place] [id number] [place] [phone] Jan, [facility] [address] [facility] [id number] [address] [place] [phone] Jan, [facility] [address] [facility] [id number] [address] [place] [address] Dec, [facility] [address] [facility] [id number] [address] [place] [phone] Dec, [facility] [address] [place] [id number] [place] [phone] Nov, Chalazion left upper eyelid H00.14 [facility] [address] [facility] [id number] [address] [place] [phone] Nov, [place] [address] [id number] [address] [place] [phone] 06 Feb, 2016 Routine follow-up Z39.2 ; Cervical high risk human papillomavirus (HPV) DNA test positive R87.810 and Atyp squam cell of undet signfc cyto smr crvx (ASC-US) R87.610 [place] [address] [id number] [address] [place] [address] Dec, Normal in third tr imester Z34.93 and 39 weeks gestation of Z3A.39 [place] [address] [id number] [address] [place] [address] Dec, Normal first confi rmed, currently in third trimester Z34.03 and 38 weeks gestation of Z3A.38 [place] [address] [facility] [id number] [address] [place] [address] Dec, Normal first confi rmed, currently in third trimester Z34.03 and 37 weeks gestation of Z3A.37 [place] [address] [facility] [id number] [address] [place] [address] Dec, Normal first confi rmed, currently in third trimester Z34.03 and 36 weeks gestation of Z3A.36 [place] [address] [facility] [id number] [address] [place] [address] Nov, [place] [address] [facility] [id number] [address] [place] [phone] Nov, Normal first confi rmed, currently in third trimester Z34.03 and 33 weeks gestation of Z3A.33 [place] [address] [id number] [address] [place] [address] Nov, Normal first confi rmed, currently in third trimester Z34.03 ; 31 weeks gestation of Z3A.31 and Encounter for immunization Z23 [place] [address] [facility] [id number] [address] [place] [phone] October, Normal first confi rmed, second trimester Z34.02 and 26 weeks gestation of Z3A.26 [place] [address] [facility] [id number] [address] [place] [address] Sep, Normal first confi rmed, second trimester Z34.02 ; Chlamydia infection affecting in second trimester, antepartum O98.312 and 22 weeks gestation of Z3A.22 [place] [address] [facility] [id number] [address] [place] [address] Aug, 18 weeks gestation of pregna ncy Z3A.18 ; Normal first confirmed, second trimester Z34.02 and Chlamydia infection affecting in second trimester, antepartum O98.312 [place] [address] [facility] [id number] [address] [place] [address] Jul, [place] [address] [facility] [id number] [address] [place] [address] Jul, [place] [address] [facility] [id number] [address] [place] [address] 08 Jul, 2015 care, first pregnan cy in second trimester Z34.02 ; with 14 completed weeks gestation Z3A.14 ; Vaginal discharge N89.8 ; Screening for malignant neoplasm of cervix Z12.4 and Routine screening for STI (sexually transmitted infection) Z11.3 [place] [address] [facility] [id number] [address] [place] [address] Jun, Encounter for immunization Z 23 ; Normal , first Z34.00 ; care, first in first trimester Z34.01 and with 10 completed weeks gestation Z3A.10 [place] [address] [facility] [id number] [address] [place] [phone] May, confirmed by posit torsten urine test Z32.01 IMMUNIZATIONS No Known Immunizations SOCIAL HISTORY Never Assessed REASON FOR VISIT OB-intake -- iirs mcmahon PLAN OF CARE Activity Details Follow Up 4 Weeks Reason: VITAL SIGNS Height 57.5 in 2017-11-09 Weight 151.0 lbs 2017-11-09 Temperature 99.0 degrees Fahrenheit 2017-11-09 Heart Rate 76 bpm 2017-11-09 Respiratory Rate 18 2017-11-09 BMI 32.11 kg/m2 2017-11-09 Blood pressure systolic 120 mmHg 2017-11-09 Blood pressure diastolic 76 mmHg 2017-11-09 MEDICATIONS Medication Instructions Dosage Frequency Start Date End Date Duration S tatus Vitamins - (Dis) Active RESULTS No Results PROCEDURES Procedure Date Ordered Result Body Site ASSAY THYROID STIM HORMONE November 09, 2017 RUBELLA ANTIBODY November 09, 2017 URINALYSIS, AUTO, W/O SCOPE November 09, 2017 VENIPUNCT, ROUTINE* November 09, 2017 URINE CULTURE/COLONY COUNT November 09, 2017 COMPLETE CBC W/AUTO DIFF WBC November 09, 2017 BLOOD TYPING, ABO November 09, 2017 CULTURE, BACTERIA, OTHER November 09, 2017 TRICHOMONAS ASSAY W/OPTIC November 09, 2017 No Charge November 09, 2017 BLOOD TYPING, RH (D) November 09, 2017 RBC ANTIBODY SCREEN November 09, 2017 INSTRUCTIONS MEDICATIONS ADMINISTERED No Known Medications MEDICAL (GENERAL) HISTORY Type Description Date Hospitalization History child
--- OUTSIDE RECORDS SUMMARY | 2019-09-03 12:28 | XMS REPORT ---
Author Author Ingrid ESTEBAN [facility] eClinical[employer] Address Unknown Phone Unavailable Care Team Providers Care Painter Drum Name Role Phone KUNAL ESTEBAN Unavailable Allergies No Known Allergies Problems Problem Type Condition Code Onset Dates Condition Statu s Problem Chlamydia infection affecting in second trimester, antepartum O98.312 Active Assessment Normal in third trimester Z34.93 Active Problem Normal first confirmed, second trimester Z34 .02 Active Assessment 39 weeks gestation of Z3A.39 Active Medications No Known Medications Procedures Procedure Coding System Code Date Office Visit, Est Pt., Level 3 CPT-4 41978 [facility] 2015 URINE-NO MICRO CPT-4 16251 January 21, 2016 Vital Signs Date/Time: January 21, 2016 Cardiac Monitoring Heart Rate 76 bpm Weight 149.0 lbs Height 57.5 in BMI 31.68 Index Blood Pressure Diastolic 70 mmHg Blood Pressure Systolic 116 mmHg Results No Known Results Summary Purpose eClinicalWorks Submission
--- OUTSIDE RECORDS SUMMARY | 2019-09-03 12:29 | XMS REPORT ---
Author Author Ingrid ESTEBAN [facility] eClinical[employer] Address Unknown Phone Unavailable Care Team Providers Care Audit Mgr Name Role Phone KUNAL ESTEBAN CP Unavailable Allergies No Known Allergies Problems Problem Type Condition Code Onset Dates Condition Statu s Assessment confirmed by positive urine test Z32.01 Active Medications No Known Medications Procedures Procedure Coding System Code Date URINE TEST CPT-4 55127 Jun 25 5 Results Name Result Date Reference Range Unit Abnormali ty Flag TEST, URINE (IN HOUSE) ----RESULTS POSITIVE [id number] ----Lot # [id number] ----Control + [id number] ----Exp date [id number] Summary Purpose eClinicalWorks Submission
--- OUTSIDE RECORDS SUMMARY | 2019-09-03 12:29 | XMS REPORT | Continuity of Care Document ---
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 Medications Current Home Medications Medication Dose Units Route Directions Days/Qty Instructions Star t Date Ibuprofen 600 Mg 600 Mg Oral Every 6 Hours 60 0 02/02/16 Social History Social History Problem Response Recorded Date/Ashish e Alcohol Use Denies Use 02/01/2016 3:00am Recreational Drug Use No 02/01/2016 3:00am Recent Foreign Travel No 02/01/2016 4:28am Recent Infectious Disease Exposure No 01/31 4:28am Hospitalization with Isolation Denies 6 6:06pm Smoking Status Never a Smoker 02/01/2016 3:04am Recent Hopitalizations No 02/01/2016 3:00am Hospitalization with Isolation Denies 6 6:06pm Query Response Start Date Stop Date Smoking Status Never a Smoker Hospital Discharge Instructions Patient Instructions Physician Instructions New, Converted or Re-Newed RX: Call to Patients Pharmacy Goal/Follow Up: with Dr. Milligan in 6 weeks Activity: Activity as Tolerated Nothing Inside Vagina: No Douching, No [place], No Tampons Discharge Diet: No Restrictions Symptoms to Report to : Bleeding Excessive, Pain Increased, Fever Over 101 Degrees F, Vaginal Bleeding Increase, Vaginal Discharge Foul, Shortness of Breath For Any Problems or Questions: Contact Your Physician Care Plan Goal:: with Dr. Milligan in 6 weeks Plan of Care Discharge Date 02/02/16 4:55pm Disposition 01 HOME, SELF-CARE Instructions/Education Provided DISCHARGE VAGINAL DELIVERY DISCHARGE Forms Provided PDI Prescriptions See Medication Section Referrals (Unspecified) - Reason(s) for Referral: Mar 02 @ 220 [address] Mcgee Care Plan and Goals See Discharge Instructions S ection Functional Status Query Response Date Recorded Patient Orientation Person Place Time Situation February 02, 2016 6:06pm Allergies, Adverse Reactions, Alerts No known allergies. Immunizations No immunization records. Vital Signs Acute Vital Signs Vital Response Date/Time Temperature (Fahrenheit) 98.3 degrees F (97.6 - 99.5) 2015 8:00am Temperature (Calculated Celsius) 36.75344 degrees C (36.4 - 37.5) 02/02/2016 8:00am Temperature Source Tympanic 02/02/2016 8:00am Pulse Rate (adult) 81 bpm (60 - 90) 02/02/2016 8:00am Respiratory Rate 20 bpm (12 - 24) 02/02/2016 8:00am O2 Sat by Pulse Oximetry 99 % (88 - 100) 02/02/2016 4:05 am Blood Pressure 102/63 mm Hg 02/02/2016 8:00am Blood Pressure Mean 76 mm Hg 02/02/2016 8:00am Pain Numeric Pain Scale 0-No Pain 02/02/2016 4:55pm Pain Intensity 0 02/01/2016 7:11pm Height (Feet) 4 feet 02/01/2016 2:55am Height (Inches) 9.00 inches 02/01/2016 2:55am Height (Calculated Centimeters) 144.964504 cm 02/01/20 16 2:55am Weight (Pounds) 149 pounds 02/01/2016 2:55am Weight (Ounces) 0.0 oz 02/01/2016 2:55am Weight (Calculated Grams) 57013.26 gm 02/01/2016 2:5 5am Weight (Calculated Kilograms) 67.977324 kilograms 02/01/2016 2:55am Calculated BMI 32.2 02/01/2016 2:55am Results Laboratory Results Test Name Result Units Flags Reference Collection Date/Time Result Date/Time Comments White Blood Count 14.2 10^3/uL H 4.3-11.0 02/02/2016 5:28am 01/2016 5:48am Red Blood Count 3.42 10^6/uL L 4.35-5.85 02/02/2016 5:28am 08/0 01/2016 5:48am Hemoglobin 10.0 G/DL #L 11.5-16.0 02/02/2016 5:am 6 5:48am Hematocrit 30 % L 35-52 02/02/2016 5:28am 02/02/2016 5:48am Mean Corpuscular Volume 88 FL 80-99 02/02/2016 5:28a m 02/02/2016 5:48am Mean Corpuscular Hemoglobin 29 PG 25-34 02/02/2016 5 :28am 02/02/2016 5:48am Mean Corpuscular Hemoglobin Concent 33 G/DL 32-3 6 02/02/2016 5:28am 02/02/2016 5:48am Red Cell Distribution Width 15.6 % H 10.0-14.5 5:28am 02/02/2016 5:48am Platelet Count 178 10^3/uL 130-400 02/02/2016 5:am 016 5:48am Mean Platelet Volume 12.4 FL H 7.4-10.4 02/02/2016 5:28am 02/02/2016 5:48am Neutrophils (%) (Auto) 66 % 42-75 02/02/2016 5:am 02/02/2016 5:48am Lymphocytes (%) (Auto) 20 % 12-44 02/02/2016 5:28am 02/02/2016 5:48am Monocytes (%) (Auto) 8 % 0-12 02/02/2016 5:28am 0 02/02/2016 5:48am Eosinophils (%) (Auto) 5 % 0-10 02/02/2016 5:28am 02/02/2016 5:48am Basophils (%) (Auto) 0 % 0-10 02/02/2016 5:28am 0 02/02/2016 5:48am Neutrophils # (Auto) 9.4 X 10^3 H 1.8-7.8 02/02/2016 5:28am 0 02/02/2016 5:48am Lymphocytes # (Auto) 2.9 X 10^3 1.0-4.0 02/02/2016 5:28am 0 02/02/2016 5:48am Monocytes # (Auto) 1.1 X 10^3 H 0.0-1.0 02/02/2016 5:28am 01/2016 5:48am Eosinophils # (Auto) 0.8 10^3/uL H 0.0-0.3 02/02/2016 5:28am 0 02/02/2016 5:48am Basophils # (Auto) 0.1 10^3/uL 0.0-0.1 02/02/2016 5:28am 01/2016 5:48am Procedures No known history of procedures. Encounters Encounter Location Arrival/Admit Date Discharge/Depart Date Attending Provider Discharged Inpatient [facility] 02/01/16 12: 22am 02/02/16 4:55pm JUNE DAVIS MD
--- OUTSIDE RECORDS SUMMARY | 2019-09-03 12:29 | XMS REPORT ---
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 Unknown Non Drug Allergy Feb, Unknown SOCIAL HISTORY No smoking Hx information available PLAN OF CARE VITAL SIGNS Height 57.5 in 2016-03-02 Weight 136.0 lbs 2016-03-02 Heart Rate 66 bpm 2016-03-02 Respiratory Rate 16 2016-03-02 BMI 28.92 kg/m2 2016-03-02 Blood pressure systolic 110 mmHg 2016-03-02 Blood pressure diastolic 68 mmHg 2016-03-02 MEDICATIONS No Known Medications RESULTS No Results PROCEDURES Procedure Date Ordered Related Diagnosis Body Site Office Visit, Est Pt., Level 3 Mar 02, 2016 IMMUNIZATIONS No Known Immunizations
--- OUTSIDE RECORDS SUMMARY | 2019-09-03 12:29 | XMS REPORT ---
Author Author Ingrid ESTEBAN [facility] eClinicalWorks Address Unknown Phone Unavailable Care Team Providers Care Employee Wellness/Fitness Coordinator Name Role Phone KUNAL ESTEBAN CP Unavailable Allergies No Known Allergies Problems Problem Type Condition Code Onset Dates Condition Statu s Problem Chlamydia infection affecting in second trimester, antepartum O98.312 Active Assessment Normal first confirmed, curren tly in third trimester Z34.03 Active Problem Normal first confirmed, second trimester Z34 .02 Active Assessment 37 weeks gestation of Z3A.37 Active Medications Medication Code System Code Instructions Start Date End Date Status Dosage Vitamin [facility] [address] 27-0.8 MG Orally Jul 28, 2015 not defined Procedures Procedure Coding System Code Date Office Visit, Est Pt., Level 3 CPT-[address] [facility]2015 URINE-NO MICRO CPT-4 87375 January 07, 2016 Vital Signs Date/Time: January 07, 2016 Blood Pressure Systolic 118 mmHg Weight 151.0 lbs Height 57.5 in Blood Pressure Diastolic 68 mmHg Results No Known Results Summary Purpose eClinicalWorks Submission
--- OUTSIDE RECORDS SUMMARY | 2019-09-03 12:29 | XMS REPORT ---
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 01 [place] [address] [address] Mar, [place] [address] [address] [place] [id number] [place] [address] Feb, Threatened miscarriage O20.0 and Homeless Z59.0 [place] [address] [address] [place] [id number] [place] [address] Feb, Threatened miscarriage O20.0 [place] [address] [address] [place] [id number] [place] [phone] Jan, Threatened miscarriage O20.0 [place] [address] [address] [place] [id number] [place] [phone] Jan, Encounter for test , result unknown Z32.00 [place] [address] [address] Jan, [facility] [address] [id number] [address] [place] [phone] Jan, [facility] [address] [id number] [address] [place] [phone] Jan, [facility] [address] [id number] [address] [place] [phone] Dec, [facility] [address] [id number] [address] [place] [phone] Dec, [facility] [address] [id number] [address] [place] [phone] Nov, [place] [address] [address] [facility] [id number] [address] [place] [phone] Nov, Chalazion left upper eyelid H00.14 [place] [address] [address] [facility] [id number] [address] [place] [address] 06 Feb, 2016 Routine follow-up Z39.2 ; Cervical high risk human papillomavirus (HPV) DNA test positive R87.810 and Atyp squam cell of undet signfc cyto smr crvx (ASC-US) R87.610 [place] [facility] [id number] [address] [place] [address] Dec, Normal in third tr imester Z34.93 and 39 weeks gestation of Z3A.39 [place] [address] [facility] [id number] [address] [place] [phone] Dec, Normal first confi rmed, currently in third trimester Z34.03 and 38 weeks gestation of Z3A.38 [facility] [address] [facility] [id number] [address] [place] [phone] 13 Dec, 2015 Normal first confi rmed, currently in third trimester Z34.03 and 37 weeks gestation of Z3A.37 [facility] [address] [facility] [id number] [address] [place] [phone] Dec, Normal first confi rmed, currently in third trimester Z34.03 and 36 weeks gestation of Z3A.36 [place] [address] [address] [facility] [id number] [address] [place] [phone] Nov, [place] [address] [address] [facility] [id number] [address] [place] [phone] Nov, Normal first confi rmed, currently in third trimester Z34.03 and 33 weeks gestation of Z3A.33 [place] [address] [address] [facility] [id number] [address] [place] [phone] Nov, Normal first confi rmed, currently in third trimester Z34.03 ; 31 weeks gestation of Z3A.31 and Encounter for immunization Z23 [place] [address] [address] [facility] [id number] [address] [place] [phone] October, Normal first confi rmed, second trimester Z34.02 and 26 weeks gestation of Z3A.26 [place] [address] [address] [place] [id number] [address] [place] [phone] Sep, Normal first confi rmed, second trimester Z34.02 ; Chlamydia infection affecting in second trimester, antepartum O98.312 and 22 weeks gestation of Z3A.22 [place] [address] [address] [facility] [id number] [address] [place] [phone] Aug, 18 weeks gestation of pregna ncy Z3A.18 ; Normal first confirmed, second trimester Z34.02 and Chlamydia infection affecting in second trimester, antepartum O98.312 [place] [address] [address] [facility] [id number] [address] [place] [phone] Jul, [place] [address] [address] [facility] [id number] [address] [place] [phone] Jul, [place] [address] [address] [place] [id number] [address] [place] [phone] Jul, care, first pregnan cy in second trimester Z34.02 ; with 14 completed weeks gestation Z3A.14 ; Vaginal discharge N89.8 ; Screening for malignant neoplasm of cervix Z12.4 and Routine screening for STI (sexually transmitted infection) Z11.3 [facility] [address] [facility] [id number] [address] [place] [phone] 11 Jun, 2015 Encounter for immunization Z 23 ; Normal , first Z34.00 ; care, first in first trimester Z34.01 and with 10 completed weeks gestation Z3A.10 [facility] [address] [facility] [id number] [address] [place] [phone] 30 May, 2015 confirmed by posit torsten urine test Z32.01 IMMUNIZATIONS No Known Immunizations SOCIAL HISTORY Never Assessed REASON FOR VISIT Lab (walk-in) PLAN OF CARE VITAL SIGNS MEDICATIONS Unknown Medications RESULTS Name Result Date Reference Range HCG, QUANTITATIVE 2017-03-01 hCG,Beta Subunit,Qnt,Serum 17 PROCEDURES Procedure Date Ordered Result Body Site CHORIONIC GONADOTROPIN TEST Mar 01, 2017 VENIPUNCT, ROUTINE* Mar 01, 2017 INSTRUCTIONS MEDICATIONS ADMINISTERED No Known Medications MEDICAL (GENERAL) HISTORY Type Description Date Hospitalization History child
--- OUTSIDE RECORDS SUMMARY | 2019-09-03 12:29 | XMS REPORT | Continuity of Care Document ---
Author Organization Unknown Address Unknown Phone Unavailable Allergies Active Description Code Type Severity Reaction Onset Reported/Identified Relationship to Patient Clinical Status Yes No Known Drug Allergies [id number] Drug Allergy Unknown N/A 06/11/2018 Medications There is no data. Problems Date Dx Coded Attending Type Code Diagnosis Diagnosed By 06/13/2018 DIANE COREAS, MYNOR Powell Ot O80 ENCOUNTER FOR FULL-TERM UNCOMPLICATED DE 06/13/2018 MYNOR CONTRERAS MD, Ot Z37.0 SINGLE LIVE 06/13/2018 MYNOR CONTRERAS MD, Ot Z3A.4 0 40 WEEKS GESTATION OF Procedures Code Description Performed By Per formed On [id number] ME JONATHAN OF [employer], EXTE 06/12/2018 Results Test Result Range HCG, QUANTITATIVE - 03/01/17 16:40 hCG,Beta Subunit,Qnt,Serum 17 mIU/mL NRG CULTURE, GENITAL - 11/09/17 15:32 CULTURE, GENITAL SEE NOTE NRG GLUCOSE KANWAL 1 HOUR - 03/07/18 15:19 GLUCOSE, POSTPRANDIAL/ 1 HOUR 90 mg/dL See Note: CULTURE, GROUP B STREP (VAGINAL) - 05/16 15:04 STREPTOCOCCUS, GROUP B CULTURE SEE NOTE NRG Complete blood count (CBC) with automate d white blood cell (WBC) differential - 06/11/18 23:48 Blood leukocytes automated count (number/volume) 14.0 10*3/uL 4.3-11.0 Blood erythrocytes automated count (number/volume) 4.36 10*6/uL 4.35-5.85 Venous blood hemoglobin measurement (mass/volume) 13.1 g/dL 11.5-16.0 Blood hematocrit (volume fraction) 39 % 35-52 Automated erythrocyte mean corpuscular volume 89 [ foz_us] 80-99 Automated erythrocyte mean corpuscular h emoglobin (mass per erythrocyte) 30 pg 25-34 Automated erythrocyte mean corpuscular h emoglobin concentration measurement (mass/volume) 34 g/dL 32-36 Automated erythrocyte distribution width ratio 14. 4 % 10.0- 14.5 Automated blood platelet count (count/volume) 216 10*3/uL 130-400 Automated blood platelet mean volume measurement 11.4 [foz_us] 7.4-10.4 Automated blood neutrophils/100 leukocytes 77 % 42-75 Automated blood lymphocytes/100 leukocytes 12 % 12-44 Blood monocytes/100 leukocytes 8 % 0-12 Automated blood eosinophils/100 leukocytes 3 % 0-10 Automated blood basophils/100 leukocytes 0 % 0-10 Blood neutrophils automated count (number/volume) 10.8 10*3 1.8-7.8 Blood lymphocytes automated count (number/volume) 1.7 10*3 1.0-4.0 Blood monocytes automated count (number/volume) 1. 2 10*3 0.0-1.0 Automated eosinophil count 0.4 10*3/uL 0 .0-0.3 Automated blood basophil count (count/volume) 0.0 10*3/uL 0.0-0.1 Blood type T Indirect antibody screen pa shaina - 06/11/18 23:48 ABO+Rh group OP NRG Transfusion band number [id number] NR Blood group antibody screen NEGATIVE NR G Complete blood count (CBC) with automate d white blood cell (WBC) differential - 06/13/18 05:30 Blood leukocytes automated count (number/volume) 12.1 10*3/uL 4.3-11.0 Blood erythrocytes automated count (number/volume) 3.44 10*6/uL 4.35-5.85 Venous blood hemoglobin measurement (mass/volume) 10.2 g/dL 11.5-16.0 Blood hematocrit (volume fraction) 31 % 35-52 Automated erythrocyte mean corpuscular volume 90 [ foz_us] 80-99 Automated erythrocyte mean corpuscular h emoglobin (mass per erythrocyte) 30 pg 25-34 Automated erythrocyte mean corpuscular h emoglobin concentration measurement (mass/volume) 33 g/dL 32-36 Automated erythrocyte distribution width ratio 14. 3 % 10.0- 14.5 Automated blood platelet count (count/volume) 195 10*3/uL 130-400 Automated blood platelet mean volume measurement 11.4 [foz_us] 7.4-10.4 Automated blood neutrophils/100 leukocytes 66 % 42-75 Automated blood lymphocytes/100 leukocytes 21 % 12-44 Blood monocytes/100 leukocytes 7 % 0-12 Automated blood eosinophils/100 leukocytes 6 % 0-10 Automated blood basophils/100 leukocytes 0 % 0-10 Blood neutrophils automated count (number/volume) 8.0 10*3 1.8-7.8 Blood lymphocytes automated count (number/volume) 2.5 10*3 1.0-4.0 Blood monocytes automated count (number/volume) 0. 9 10*3 0.0-1.0 Automated eosinophil count 0.7 10*3/uL 0 .0-0.3 Automated blood basophil count (count/volume) 0.0 10*3/uL 0.0-0.1 RUBELLA IMMUNE STATUS - 04/03/19 17:44 RUBELLA ANTIBODY (IGG) 5.06 index NRG CULTURE, URINE - 04/03/19 17:44 CULTURE, URINE, ROUTINE SEE NOTE NRG CULTURE, GENITAL - 04/03/19 17:44 CULTURE, GENITAL SEE NOTE NRG SUREPATH PAP RFX HPV mRNA E6/E7 - 19:00 CLINICAL INFORMATION: NRG LMP: 11/2018 NRG PREV. PAP: 2016 NRG PREV. BX: NRG SOURCE: Cervix NR STATEMENT OF ADEQUACY: NR INTERPRETATION/RESULT: [facility] SUBMARINE CABLE EQUIPMENT TECHNICIAN: FABRIZIO COMMENT NR CBC - 06/06/19 11:31 WHITE BLOOD CELL COUNT 7.6 Thousand/uL 3 .8-10.8 RED BLOOD CELL COUNT 3.66 Million/uL 3.8 0-5.10 HEMOGLOBIN 11.6 g/dL 11.7-15.5 HEMATOCRIT 33.3 % 35.0-45.0 MCV 91.0 fL 80.0-100.0 MCH 31.7 pg 27.0-33.0 MCHC 34.8 g/dL 32.0-36.0 RDW 11.6 % 11.0-15.0 PLATELET COUNT 251 Thousand/uL 140-400 MPV 11.4 fL 7.5-12.5 ABSOLUTE NEUTROPHILS 4864 cells/uL 1500- 7800 ABSOLUTE LYMPHOCYTES 1839 cells/uL 850-3 900 ABSOLUTE MONOCYTES 707 cells/uL 200-950 ABSOLUTE EOSINOPHILS 137 cells/uL 15-500 ABSOLUTE BASOPHILS 53 cells/uL 0-200 NEUTROPHILS 64 % NRG LYMPHOCYTES 24.2 % NRG MONOCYTES 9.3 % NRG EOSINOPHILS 1.8 % NRG BASOPHILS 0.7 % NRG CULTURE, GROUP B STREP (VAGINAL) - 07/24 12:13 STREPTOCOCCUS, GROUP B CULTURE SEE NOTE NRG Complete blood count (CBC) with automate d white blood cell (WBC) differential - 08/30/19 08:00 Blood leukocytes automated count (number/volume) 7.6 10*3/uL 4.3-11.0 Blood erythrocytes automated count (number/volume) 4.44 10*6/uL 4.35-5.85 Venous blood hemoglobin measurement (mass/volume) 12.6 g/dL 11.5-16.0 Blood hematocrit (volume fraction) 38 % 35-52 Automated erythrocyte mean corpuscular volume 87 [ foz_us] 80-99 Automated erythrocyte mean corpuscular h emoglobin (mass per erythrocyte) 28 pg 25-34 Automated erythrocyte mean corpuscular h emoglobin concentration measurement (mass/volume) 33 g/dL 32-36 Automated erythrocyte distribution width ratio 14. 6 % 10.0- 14.5 Automated blood platelet count (count/volume) 258 10*3/uL 130-400 Automated blood platelet mean volume measurement 11.6 [foz_us] 7.4-10.4 Automated blood neutrophils/100 leukocytes 68 % 42-75 Automated blood lymphocytes/100 leukocytes 22 % 12-44 Blood monocytes/100 leukocytes 8 % 0-12 Automated blood eosinophils/100 leukocytes 1 % 0-10 Automated blood basophils/100 leukocytes 0 % 0-10 Blood neutrophils automated count (number/volume) 5.2 10*3 1.8-7.8 Blood lymphocytes automated count (number/volume) 1.7 10*3 1.0-4.0 Blood monocytes automated count (number/volume) 0. 6 10*3 0.0-1.0 Automated eosinophil count 0.1 10*3/uL 0 .0-0.3 Automated blood basophil count (count/volume) 0.0 10*3/uL 0.0-0.1 Blood type T Indirect antibody screen pa shaina - 08/30/19 08:00 WRISTBAND NUMBER [id number] NRG ABO+Rh group OP NRG Blood group antibody screen NEGATIVE NR G Complete blood count (CBC) with automate d white blood cell (WBC) differential - 08/31/19 06:15 Blood leukocytes automated count (number/volume) 12.5 10*3/uL 4.3-11.0 Blood erythrocytes automated count (number/volume) 4.06 10*6/uL 4.35-5.85 Venous blood hemoglobin measurement (mass/volume) 11.5 g/dL 11.5-16.0 Blood hematocrit (volume fraction) 36 % 35-52 Automated erythrocyte mean corpuscular volume 88 [ foz_us] 80-99 Automated erythrocyte mean corpuscular h emoglobin (mass per erythrocyte) 28 pg 25-34 Automated erythrocyte mean corpuscular h emoglobin concentration measurement (mass/volume) 32 g/dL 32-36 Automated erythrocyte distribution width ratio 15. 1 % 10.0- 14.5 Automated blood platelet count (count/volume) 237 10*3/uL 130-400 Automated blood platelet mean volume measurement 11.4 [foz_us] 7.4-10.4 Automated blood neutrophils/100 leukocytes 73 % 42-75 Automated blood lymphocytes/100 leukocytes 17 % 12-44 Blood monocytes/100 leukocytes 8 % 0-12 Automated blood eosinophils/100 leukocytes 1 % 0-10 Automated blood basophils/100 leukocytes 0 % 0-10 Blood neutrophils automated count (number/volume) 9.1 10*3 1.8-7.8 Blood lymphocytes automated count (number/volume) 2.2 10*3 1.0-4.0 Blood monocytes automated count (number/volume) 1. 0 10*3 0.0-1.0 Automated eosinophil count 0.2 10*3/uL 0 .0-0.3 Automated blood basophil count (count/volume) 0.0 10*3/uL 0.0-0.1 Encounters ACCT No. Visit Date/Time Discharge Status Pt. Type Provider Facility Loc./Unit Complaint [id number] 08/21/2019 10:00:00 08/21/2019 23:59: 59 [facility] Outpatient MYNOR CONTRERAS [facility] [id number] 07/24/2019 10:40:00 Document Registration [id number] 06/06/2019 10:20:00 Document Registration [id number] 04/03/2019 16:40:00 Document Registration [id number] 05/16/2018 15:00:00 Document Registration [id number] 03/07/2018 14:20:00 Document Registration [id number] 11/09/2017 14:20:00 Document Registration [id number] 03/01/2017 16:20:00 Document Registration [id number] 08/30/2019 07:15:00 020 16:20:00 DIS Inpatient CARLOS ENRIQUE NESS MD [facility] INDUCTION [id number] 06/11/2018 23:34:00 018 12:46:00 DIS Inpatient MYNOR CONTRERAS MD [facility] LABOR
== END 2019-08-31 16:20 | disposition home or self-care (01) | DRG 807 ==
LOC: LDRP 07:15
PROVIDERS: ADMIT Family Medicine; ATTEND Family Medicine
PROC: 10E0XZZ Delivery of Products of Conception, External Approach (ICD-10-PCS; principal; 2019-08-30)
PROC: 3E033VJ Introduction of Other Hormone into Peripheral Vein, Percutaneous Approach (ICD-10-PCS; 2019-08-30)
DX: O48.0 Post-term pregnancy (principal); Z37.0 Single live birth; Z3A.41 41 weeks gestation of pregnancy
CPT/HCPCS: 36415; 85025; 86850; 86900; 86901